=== PATIENT | female | born 1985 | race Caucasian/White ===

== ENCOUNTER 2018-12-12 07:51 | Inpatient (IN) ==
[2018-12-12] MEDS ORDERED: PENICILLIN G POTASSIUM 6 MU in DEXTROSE 5% 250 ML IV STA (09:03)
[2018-12-12] MEDS ORDERED: OXYTOCIN 30 UNITS/500 ML BAG IV PRN (09:03)
[2018-12-12 09:35] LABS: Hematocrit (blood only) 35.7 % (37-47); Hemoglobin 12.6 g/dL (12.0-16.0); Mean Corpuscular Hemoglobin 33.1 pg (25-34); Mean Corpuscular Volume 93.7 fL (80-100); Mean Platelet Volume 9.4 fL (7.4-10.4); Platelet Count 317 K/uL (130-400); RDW Coefficient of Variation 13.1 % (11.5-14.5); Red Blood Count 3.81 M/uL (4.2-5.4); White Blood Count 8.91 K/uL (4.8-10.8)
[2018-12-12] MEDS ORDERED: CEFAZOLIN 2000MG 2,000 MG/15 ML SYR IV ONE (09:45)
[2018-12-12 09:47] LABS: Mean Corpuscular Hgb Conc 35.3 g/dL (32-36)
[2018-12-12] MEDS: OXYTOCIN 30 UNITS/500 ML BAG IV PRN (10:31)
--- NOTE | 2018-12-12 10:54 | History & Physical Report ---
Date of Service December 12, 2018 Assessment & Plan (1) Post term over 40 weeks: IUP at 40+ weeks for OL will begin pitocin induction will use cefazolin because she is GBS (+) and allergic to PCNs patient will want epidural analgesia when appropriate anticipate vaginal History of Present Illness Primary Care Provider: Raine Plata MD Patient is a33 yo white female EDC12/07/[birth year] who presents for IOL because of post term . was complicated by GBS (+). Placenta was also low lying initially but resolved by 32 weeks. Allergies Allergy/AdvReac Type Severity Reaction Status Date / Time Penicillins Allergy Hives Verified 12/12/18 08:30 Home Medications Home Medications Medication Instructions Recorded Confirmed Type 1 tab PO DAILY 09/19/18 12/11/18 History vitamin,calcium,paypklfn-wiux-kcsog acid tablet Patient History Social History Preferred Language: Malay Communication Ability: Effective [employer] Estate [employer] Required: No Beliefs That Will Affect Care: None marital status: Current Living Situation: Spouse Other Information That Helps Us Care for You: No Feels Safe at Home: Yes Safety Concerns: Feels Safe At This Time Smoking Status: Never smoker Second Hand Exposure: No ; Hx Alcohol Use: No Hx Substance Use: No Review of Systems All systems reviewed & are unremarkable except as noted in HPI & below Physical Exam Constitutional: WD/WN, vitals as above Respiratory: normal respiratory effort, lungs clear to auscultation Cardiovascular: RRR, no murmur, no edema Gastrointestinal (Abdomen): normal bowel sounds, soft, nontender, no hepatosplenomegaly Psychiatric: A+Ox3, euthymic affect Genitourinary: OB Exam Abdomen: + vertex and + estimated weight (8-9 pounds) Manual OB Exam: + cervical dilation 2 cm, + cervical effacement 50% and + station high OB Exam Monitor Tracing: + external FHT monitor used, + external uterine monitor used, + category I and + normal FHT variability vertex by sonogram Results & Data Vital Signs (Past 12 Hours) Vital Signs Temp Pulse Resp BP 12/12/18 10:31 80 138/92 12/12/18 07:57 110 H 131/97 12/12/18 07:55 98.2 F 18 Code Status & VTE Plan VTE Prophylaxis Plan VTE Prophylaxis will be ordered: No
[2018-12-12] MEDS: LACTATED RINGER'S 1,000 ML IV PRN ×2 (17:38→19:59)
[2018-12-12] MEDS ORDERED: ePHEDrine sulfate 50 MG/ML AMP ONE (19:15)
[2018-12-12] MEDS ORDERED: fentaNYL citrate 100 MCG/2 ML VIAL ONE (19:15)
[2018-12-12] MEDS ORDERED: BUPIVACAINE 0.25% 30 ML VIAL ONE (19:16)
[2018-12-12] MEDS ORDERED: fentaNYL 2MCG/ML ROPIV 1.25MG/ML 100 ML BAG EPI ONE (19:16)
[2018-12-12] MEDS ORDERED: NALOXONE HCL 0.4 MG/1 ML VIAL/CARP IV PRN (19:51)
[2018-12-12] MEDS ORDERED: NALBUPHINE HCL INJ 10 MG/ML AMP IV PRN (19:51)
[2018-12-12] MEDS ORDERED: NALOXONE HCL 1 MG in SODIUM CHLORIDE 0.9% 1000ML 1,000 ML IV PRN (19:51)
[2018-12-12] MEDS ORDERED: DiphenhydrAMINE HCL 50 MG/ML VIAL IV PRN (19:51)
[2018-12-12] MEDS ORDERED: ONDANSETRON INJ 2 MG/ML 2 ML VIAL IV PRN (19:51)
[2018-12-12] MEDS ORDERED: ePHEDrine sulfate 50 MG/ML AMP IV PRN (19:51)
--- NOTE | 2018-12-12 19:52 | Anesthesiology Consultation ---
Date of Service December 12, 2018 Assessment & Plan (1) Encounter for pre-operative examination: 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: Patient NOT seen in Pre Admission Testing and Acceptable Risk for Labor Epidural Consults Requested none History Height/Weight Height: 5 ft 4 in Weight: 107.048 kg Allergies Allergy/AdvReac Type Severity Reaction Status Date / Time Penicillins Allergy Hives Verified 12/12/18 08:30 Medications Home Medications Medication Instructions Recorded Confirmed Last Taken 1 tab PO DAILY 09/19/18 12/12/18 12/11/18 21:00 vitamin,calcium,vxkysqqq-zuzs-nqdrv acid tablet Active Medications Generic Name Dose Route Start Last Admin Trade Name Freq PRN Reason Stop Dose Admin Lactated Ringer's 1,000 mls @ 125 mls/hr 12/12/18 09:03 12/12/18 19:10 Lr IV 12/14/18 09:02 999 mls/hr .Q8H PRN Infusion L&D Protocol Protocol Oxytocin 30 units in 500 mls @ 15 mls/hr 12/12/18 09:09 12/12/18 17:13 Pitocin IV 12/14/18 09:08 0.9 units/hr .Q24H PRN 15 mls/hr Labor Induction/Augmentation Titration Protocol 0.9 UNITS/HR Past Medical History Medical History History of miscarriage Need for rhogam due to Rh negative mother (Acute) HPV in female History of varicella Exercise / Class Metabolic Activity II 4-5 Yardwork/Stairs/Walk up hill Past Family History Family History Grandmother (Maternal) Breast cancer Heart disease Grandfather (Maternal) Heart disease Grandfather (Paternal) Heart disease Mother Hypertension Father Hypertension Dyslipidemia Past Surgical History Surgical History S/P wisdom tooth extraction Past Anesthesia History No Hx of Anesthesia Complications and No Family Hx of Anesthesia Complications History of PONV No Hx of PONV and No Hx of Motion Sickness Social History Smoking Status: Never smoker Do You Dip or Chew Tobacco: No Hx Alcohol Use: No Hx Substance Use: No substance use type: does not use Physical Exam Vital Signs Last Vital Signs Temp 36.8 C 10/22/19 19:30 Pulse 89 12/12/18 19:50 Resp 18 12/12/18 19:30 BP 142/98 H 12/12/18 19:49 Pulse Ox 98 12/12/18 19:50 Testing Laboratory Results 12/12/18 09:16
[2018-12-12] MEDS: CEFAZOLIN 1000MG 1,000 MG/7.5 ML SYR IV PRN (20:16)
[2018-12-13] MEDS ORDERED: CALCIUM CARBONATE 500 MG CHEWABLE TAB PO PRN (01:39)
[2018-12-13] MEDS: CEFAZOLIN 1000MG 1,000 MG/7.5 ML SYR IV PRN ×2 (03:50→12:19)
[2018-12-13] MEDS: LACTATED RINGER'S 1,000 ML IV PRN ×2 (03:50→11:27)
[2018-12-13] MEDS: fentaNYL 2MCG/ML ROPIV 1.25MG/ML 100 ML BAG EPI PRN ×2 (07:23→15:05)
[2018-12-13 08:34] LABS: Basophils # (auto) 0.03 K/uL (0-0.2); Basophils % (auto) 0.4 %; Eosinophils # (auto) 0.08 K/uL (0-0.5); Hematocrit (blood only) 34.6 % (37-47); Hemoglobin 12.2 g/dL (12.0-16.0); Immature Granulocytes # (auto) 0.03 K/uL (0.00-0.02); Immature Granulocytes % (auto) 0.4 %; Mean Corpuscular Hemoglobin 32.8 pg (25-34); Mean Platelet Volume 9.3 fL (7.4-10.4); Monocytes # (auto) 0.58 K/uL (0.11-0.59); Monocytes % (auto) 6.9 %; Neutrophils % (auto) 72.3 %; Platelet Count 297 K/uL (130-400); RDW Coefficient of Variation 13.2 % (11.5-14.5); RDW Standard Deviation 44.9 fL (36.4-46.3); Red Blood Count 3.72 M/uL (4.2-5.4); White Blood Count 8.42 K/uL (4.8-10.8)
[2018-12-13 08:45] LABS: INR 0.9 (0.9-1.1); Partial Thromboplastin Ratio 0.9; Partial Thromboplastin Time 25.7 Seconds (21.0-31.0); Prothrombin Time 9.5 Seconds (9.0-12.0)
[2018-12-13 08:50] LABS: Creatinine Clr Calc Pharmacy 145.3 ml/min; Est GFR (African American) 135.8; Est GFR (Non-African American) 117.1
--- NOTE | 2018-12-13 08:57 | Labor Progress Brief Note ---
Date of Service December 13, 2018 Subjective Reason For Note: Routine Evaluation pt comfortable with epidural. postdates induction. just srom this am for clear fluid at 745am. signout from dr. lara. pt made aware i am taking over care. Assessment & Plan (1) Post term over 40 weeks: 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 Streptococcus: on kefzol. c/w pit. will reeval cx in about 2hr from srom. may need to consider iupc at that time. fhts categ 1. comfortable with epidural. Physical Exam Constitutional: WD/WN, vitals as above Genitourinary: OB Exam Monitor Tracing: + external FHT monitor used (130 mod variability, reactive), + external uterine monitor used (q2-3), + category I and + normal FHT variability Results & Data Vital Signs (Past 12 Hours) Vital Signs Temp Pulse Resp BP Pulse Ox 12/13/18 08:50 83 98 12/13/18 08:45 91 H 98 12/13/18 08:40 85 133/85 98 12/13/18 08:35 77 97 12/13/18 08:31 20 12/13/18 08:30 79 97 12/13/18 08:25 85 136/86 98 12/13/18 08:20 77 98 12/13/18 08:15 81 97 12/13/18 08:11 76 122/80 12/13/18 08:10 78 98 12/13/18 08:05 87 98 12/13/18 08:01 20 12/13/18 08:00 98 H 98 12/13/18 07:57 90 136/99 12/13/18 07:55 81 98 12/13/18 07:50 80 98 12/13/18 07:45 98 H 97 12/13/18 07:42 98.1 F 89 20 135/102 H 12/13/18 07:40 106 H 98 12/13/18 07:35 90 97 12/13/18 07:30 103 H 97 12/13/18 07:28 99 H 153/98 H 12/13/18 07:25 99 H 150/102 H 98 12/13/18 07:20 104 H 97 12/13/18 07:15 118 H 97 12/13/18 07:11 103 H 147/103 H 12/13/18 07:10 101 H 158/106 H 97 12/13/18 07:05 91 H 97 12/13/18 07:01 20 12/13/18 07:00 101 H 97 12/13/18 06:55 88 157/98 H 96 12/13/18 06:50 95 H 97 12/13/18 06:45 98 H 97 12/13/18 06:41 98 H 174/92 H 12/13/18 06:40 104 H 98 12/13/18 06:35 102 H 98 12/13/18 06:33 88 147/99 H 12/13/18 06:30 85 98 12/13/18 06:27 18 12/13/18 06:25 82 152/101 H 98 12/13/18 06:20 80 97 12/13/18 06:15 70 97 12/13/18 06:10 67 108/67 97 12/13/18 06:05 68 96 12/13/18 06:00 67 96 12/13/18 05:56 70 108/62 12/13/18 05:55 69 96 12/13/18 05:50 67 96 12/13/18 05:45 70 97 12/13/18 05:41 69 115/62 12/13/18 05:40 72 96 12/13/18 05:35 68 96 12/13/18 05:30 69 96 12/13/18 05:25 75 116/65 96 12/13/18 05:23 18 12/13/18 05:20 69 96 12/13/18 05:15 67 96 12/13/18 05:10 75 118/64 98 12/13/18 05:07 18 12/13/18 05:05 71 97 12/13/18 05:00 68 97 12/13/18 04:55 75 123/68 97 12/13/18 04:50 75 98 12/13/18 04:45 70 97 12/13/18 04:40 76 128/80 99 12/13/18 04:35 87 98 12/13/18 04:30 79 98 12/13/18 04:25 73 122/76 97 12/13/18 04:20 82 98 12/13/18 04:15 81 98 12/13/18 04:12 75 128/82 12/13/18 04:10 74 97 12/13/18 04:05 75 97 12/13/18 04:00 90 98 12/13/18 03:59 98.1 F 18 12/13/18 03:55 74 123/88 97 12/13/18 03:50 86 97 12/13/18 03:45 83 97 12/13/18 03:40 83 121/85 97 12/13/18 03:35 86 97 12/13/18 03:30 95 H 96 12/13/18 03:25 87 126/84 96 12/13/18 03:20 97.9 F 80 18 96 12/13/18 03:15 97 H 97 12/13/18 03:10 86 125/88 97 12/13/18 03:05 82 96 12/13/18 03:00 96 H 96 12/13/18 02:55 100 H 122/91 97 12/13/18 02:50 77 97 12/13/18 02:45 91 H 96 12/13/18 02:40 102 H 128/91 96 12/13/18 02:35 83 96 12/13/18 02:30 71 18 94 12/13/18 02:25 91 H 134/92 98 12/13/18 02:20 77 95 12/13/18 02:15 78 96 12/13/18 02:10 82 130/81 96 12/13/18 02:05 86 96 12/13/18 02:00 89 96 12/13/18 01:55 79 134/87 96 12/13/18 01:50 92 H 98 12/13/18 01:45 81 98 12/13/18 01:41 79 148/89 H 12/13/18 01:40 78 97 12/13/18 01:35 89 98 12/13/18 01:30 84 97 12/13/18 01:26 99 H 128/96 12/13/18 01:25 96 H 98 12/13/18 01:20 76 97 12/13/18 01:15 87 98 12/13/18 01:10 81 131/89 97 12/13/18 01:05 91 H 98 12/13/18 01:00 98.2 F 80 18 97 12/13/18 00:55 84 135/90 97 12/13/18 00:50 78 97 12/13/18 00:45 80 98 12/13/18 00:41 81 134/89 12/13/18 00:40 79 97 12/13/18 00:35 80 97 12/13/18 00:30 88 97 12/13/18 00:26 81 140/101 H 12/13/18 00:25 79 96 12/13/18 00:20 99 H 96 12/13/18 00:15 85 97 12/13/18 00:10 84 124/88 96 12/13/18 00:05 80 98 12/13/18 00:01 81 94 12/13/18 00:00 84 97 12/12/18 23:56 90 129/86 12/12/18 23:55 84 96 12/12/18 23:50 87 96 12/12/18 23:45 78 96 12/12/18 23:40 97 H 130/87 97 12/12/18 23:35 73 97 12/12/18 23:30 90 97 12/12/18 23:26 73 133/87 12/12/18 23:25 74 97 12/12/18 23:20 86 96 12/12/18 23:15 80 97 12/12/18 23:11 76 143/96 H 12/12/18 23:10 85 97 12/12/18 23:05 86 98 12/12/18 23:00 97.9 F 76 18 97 12/12/18 22:57 70 153/92 H 12/12/18 22:55 74 97 12/12/18 22:50 75 98 12/12/18 22:45 76 98 12/12/18 22:41 75 131/84 12/12/18 22:40 78 98 12/12/18 22:35 80 98 12/12/18 22:30 73 18 98 12/12/18 22:26 78 138/88 12/12/18 22:25 73 97 12/12/18 22:20 73 97 12/12/18 22:15 75 98 12/12/18 22:11 75 138/83 12/12/18 22:10 78 99 12/12/18 22:05 75 96 12/12/18 22:00 71 18 98 12/12/18 21:56 73 139/83 12/12/18 21:55 79 97 10/22/19 21:50 77 98 12/12/18 21:45 77 97 12/12/18 21:42 76 137/84 12/12/18 21:40 78 98 12/12/18 21:35 76 98 12/12/18 21:30 89 20 98 12/12/18 21:25 79 128/83 97 12/12/18 21:20 78 97 12/12/18 21:15 79 98 12/12/18 21:10 77 127/85 97 12/12/18 21:05 81 97 12/12/18 21:00 78 20 97 12/12/18 20:56 75 131/81 12/12/18 20:55 80 97
[2018-12-13 09:15] LABS: Mean Corpuscular Hgb Conc 35.3 g/dL (32-36)
--- NOTE | 2018-12-13 10:01 | Labor Progress Brief Note ---
Date of Service December 13, 2018 Subjective Reason For Note: Routine Evaluation feels occas lower abd pressure. Assessment & Plan (1) Post term over 40 weeks: 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 Streptococcus: cont with abx, c/w pit, use mvu's to guide adequacy of labor. fhts categ 1. Physical Exam Constitutional: WD/WN, vitals as above Genitourinary: Manual OB Exam: + cervical dilation 4 cm, + cervical effacement 50%, + station -2 and + amniotic fluid clear OB Exam Monitor Tracing: + external FHT monitor used (135 mod variability, reactive. ), + external uterine monitor used (q2 pit at 27), + category I and + normal FHT variability IUPC placed. Results & Data Vital Signs (Past 12 Hours) Vital Signs Temp Pulse Resp BP Pulse Ox 12/13/18 09:57 87 144/102 H 12/13/18 09:55 85 97 12/13/18 09:50 95 H 97 12/13/18 09:45 84 97 12/13/18 09:41 88 142/93 H 12/13/18 09:40 76 96 12/13/18 09:35 83 97 12/13/18 09:31 97.7 F 20 12/13/18 09:30 79 159/91 H 98 12/13/18 09:25 81 96 12/13/18 09:20 77 96 12/13/18 09:15 77 96 12/13/18 09:11 83 126/84 12/13/18 09:10 77 97 12/13/18 09:05 79 97 12/13/18 09:00 77 96 12/13/18 08:56 76 20 129/81 12/13/18 08:55 81 98 12/13/18 08:50 83 98 12/13/18 08:45 91 H 98 12/13/18 08:40 85 133/85 98 12/13/18 08:35 77 97 12/13/18 08:31 20 12/13/18 08:30 79 97 12/13/18 08:25 85 136/86 98 12/13/18 08:20 77 98 12/13/18 08:15 81 97 12/13/18 08:11 76 122/80 12/13/18 08:10 78 98 12/13/18 08:05 87 98 12/13/18 08:01 20 12/13/18 08:00 98 H 98 12/13/18 07:57 90 136/99 12/13/18 07:55 81 98 12/13/18 07:50 80 98 12/13/18 07:45 98 H 97 12/13/18 07:42 98.1 F 89 20 135/102 H 12/13/18 07:40 106 H 98 12/13/18 07:35 90 97 12/13/18 07:30 103 H 97 12/13/18 07:28 99 H 153/98 H 12/13/18 07:25 99 H 150/102 H 98 12/13/18 07:20 104 H 97 12/13/18 07:15 118 H 97 12/13/18 07:11 103 H 147/103 H 12/13/18 07:10 101 H 158/106 H 97 12/13/18 07:05 91 H 97 12/13/18 07:01 20 12/13/18 07:00 101 H 97 12/13/18 06:55 88 157/98 H 96 12/13/18 06:50 95 H 97 12/13/18 06:45 98 H 97 12/13/18 06:41 98 H 174/92 H 12/13/18 06:40 104 H 98 12/13/18 06:35 102 H 98 12/13/18 06:33 88 147/99 H 12/13/18 06:30 85 98 12/13/18 06:27 18 12/13/18 06:25 82 152/101 H 98 12/13/18 06:20 80 97 12/13/18 06:15 70 97 12/13/18 06:10 67 108/67 97 12/13/18 06:05 68 96 12/13/18 06:00 67 96 12/13/18 05:56 70 108/62 12/13/18 05:55 69 96 12/13/18 05:50 67 96 12/13/18 05:45 70 97 12/13/18 05:41 69 115/62 12/13/18 05:40 72 96 12/13/18 05:35 68 96 12/13/18 05:30 69 96 12/13/18 05:25 75 116/65 96 12/13/18 05:23 18 12/13/18 05:20 69 96 12/13/18 05:15 67 96 12/13/18 05:10 75 118/64 98 12/13/18 05:07 18 12/13/18 05:05 71 97 12/13/18 05:00 68 97 12/13/18 04:55 75 123/68 97 12/13/18 04:50 75 98 12/13/18 04:45 70 97 12/13/18 04:40 76 128/80 99 12/13/18 04:35 87 98 12/13/18 04:30 79 98 12/13/18 04:25 73 122/76 97 12/13/18 04:20 82 98 12/13/18 04:15 81 98 12/13/18 04:12 75 128/82 12/13/18 04:10 74 97 12/13/18 04:05 75 97 12/13/18 04:00 90 98 12/13/18 03:59 98.1 F 18 12/13/18 03:55 74 123/88 97 12/13/18 03:50 86 97 12/13/18 03:45 83 97 12/13/18 03:40 83 121/85 97 12/13/18 03:35 86 97 12/13/18 03:30 95 H 96 12/13/18 03:25 87 126/84 96 12/13/18 03:20 97.9 F 80 18 96 12/13/18 03:15 97 H 97 12/13/18 03:10 86 125/88 97 12/13/18 03:05 82 96 12/13/18 03:00 96 H 96 12/13/18 02:55 100 H 122/91 97 12/13/18 02:50 77 97 12/13/18 02:45 91 H 96 12/13/18 02:40 102 H 128/91 96 12/13/18 02:35 83 96 12/13/18 02:30 71 18 94 12/13/18 02:25 91 H 134/92 98 12/13/18 02:20 77 95 12/13/18 02:15 78 96 12/13/18 02:10 82 130/81 96 12/13/18 02:05 86 96 12/13/18 02:00 89 96 12/13/18 01:55 79 134/87 96 12/13/18 01:50 92 H 98 12/13/18 01:45 81 98 12/13/18 01:41 79 148/89 H 12/13/18 01:40 78 97 12/13/18 01:35 89 98 12/13/18 01:30 84 97 12/13/18 01:26 99 H 128/96 12/13/18 01:25 96 H 98 12/13/18 01:20 76 97 12/13/18 01:15 87 98 12/13/18 01:10 81 131/89 97 12/13/18 01:05 91 H 98 12/13/18 01:00 98.2 F 80 18 97 12/13/18 00:55 84 135/90 97 12/13/18 00:50 78 97 12/13/18 00:45 80 98 12/13/18 00:41 81 134/89 12/13/18 00:40 79 97 12/13/18 00:35 80 97 12/13/18 00:30 88 97 12/13/18 00:26 81 140/101 H 12/13/18 00:25 79 96 12/13/18 00:20 99 H 96 12/13/18 00:15 85 97 12/13/18 00:10 84 124/88 96 12/13/18 00:05 80 98 12/13/18 00:01 81 94 12/13/18 00:00 84 97 12/12/18 23:56 90 129/86 12/12/18 23:55 84 96 12/12/18 23:50 87 96 12/12/18 23:45 78 96 12/12/18 23:40 97 H 130/87 97 12/12/18 23:35 73 97 12/12/18 23:30 90 97 12/12/18 23:26 73 133/87 12/12/18 23:25 74 97 12/12/18 23:20 86 96 12/12/18 23:15 80 97 12/12/18 23:11 76 143/96 H 12/12/18 23:10 85 97 12/12/18 23:05 86 98 12/12/18 23:00 97.9 F 76 18 97 12/12/18 22:57 70 153/92 H 12/12/18 22:55 74 97 12/12/18 22:50 75 98 12/12/18 22:45 76 98 12/12/18 22:41 75 131/84 12/12/18 22:40 78 98 12/12/18 22:35 80 98 12/12/18 22:30 73 18 98 12/12/18 22:26 78 138/88 12/12/18 22:25 73 97 12/12/18 22:20 73 97 12/12/18 22:15 75 98 12/12/18 22:11 75 138/83 12/12/18 22:10 78 99 12/12/18 22:05 75 96 12/12/18 22:00 71 18 98
[2018-12-13] MEDS: OXYTOCIN 30 UNITS/500 ML BAG IV PRN (10:03)
[2018-12-13] MEDS ORDERED: Nursing to Pharmacy Communication ONE (13:25)
[2018-12-13] MEDS ORDERED: LABETALOL HCL IV 5 MG/ML 20ML IV STA (13:38)
--- NOTE | 2018-12-13 13:38 | Labor Progress Brief Note ---
Date of Service December 13, 2018 Subjective Reason For Note: Routine Evaluation and Requested By Patient having more right sided pain, despite epidural. has been d/w nursing potentially requesting c/s. i have been aware of her thoughts and have been available to answer questions Assessment & Plan (1) Post term over 40 weeks: (2) Gestational hypertension: labs this am were normal. urine output has been good. urine protein neg. (3) Carrier of group B Streptococcus: abx for gbs pit for induction, good cx change. fhts categ 1 discussion with pt per nursing notes. she does not want to increase pitocin to achieve adequate mvu's, she also does not want to 1/2 pit and restart. she wants to keep pitocin where it is. still that has changed her cx so far but unclear to me that if cx does not change that we can say that we achieved adequate labor. given bps, will add labetalol, pt aware. discussed need for delivery with that dx at her gest age but still does not change indication to urgent delivery ie. c/s. she is able to choose c/s delivery if she wants. currently no medical indication for that, and that can change. she asks about the future, ie. will she make it to complete, will she successfully push to delivery baby, will her baby come down in the pelvis, will she need c/s ultimately anyway. none of these questions are answerable as I cannot predict the future. Any of these scenarios could occur for her, just not able to tell now. she and spouse continue to discuss if she want to "go on" anymore. We will try to get her more comfortable with epidural. Physical Exam Constitutional: WD/WN, vitals as above Genitourinary: Manual OB Exam: + cervical dilation 6 cm, + cervical effacement 90% and + station -2 OB Exam Monitor Tracing: + external FHT monitor used (120 mod variability, ?early decels), + intra-uterine pressure catheter used (q2 pit at 30), + category I and + normal FHT variability Results & Data Vital Signs (Past 12 Hours) Vital Signs Temp Pulse Resp BP Pulse Ox 12/13/18 13:30 98.2 F 97 H 20 98 12/13/18 13:25 84 98 12/13/18 13:20 87 98 12/13/18 13:15 91 H 97 12/13/18 13:10 82 97 12/13/18 13:05 100 H 20 168/101 H 98 12/13/18 13:00 105 H 98 12/13/18 12:55 100 H 98 12/13/18 12:50 88 97 12/13/18 12:45 99 H 98 12/13/18 12:40 97 H 97 12/13/18 12:35 97 H 98 12/13/18 12:33 94 H 20 142/98 H 12/13/18 12:30 88 97 12/13/18 12:25 95 H 98 12/13/18 12:20 87 97 12/13/18 12:15 98 H 97 12/13/18 12:10 85 97 12/13/18 12:05 93 H 98 12/13/18 12:03 93 H 20 138/101 H 12/13/18 12:00 95 H 97 12/13/18 11:55 101 H 98 12/13/18 11:50 85 97 12/13/18 11:45 86 98 12/13/18 11:40 93 H 97 12/13/18 11:35 89 98 12/13/18 11:33 91 H 20 155/102 H 12/13/18 11:30 93 H 97 12/13/18 11:25 93 H 98 12/13/18 11:20 78 98 12/13/18 11:15 90 97 12/13/18 11:10 82 98 12/13/18 11:05 85 97 12/13/18 11:04 98.1 F 82 20 152/100 H 12/13/18 11:00 77 97 12/13/18 10:55 90 96 12/13/18 10:50 78 97 12/13/18 10:45 78 96 12/13/18 10:40 79 97 12/13/18 10:35 89 98 12/13/18 10:34 78 20 150/96 H 12/13/18 10:30 79 97 12/13/18 10:25 81 97 12/13/18 10:20 84 98 12/13/18 10:15 83 97 12/13/18 10:10 79 96 12/13/18 10:05 85 96 12/13/18 10:02 81 20 143/88 H 10/23/19 10:01 20 12/13/18 10:00 88 96 12/13/18 09:57 87 144/102 H 12/13/18 09:55 85 97 12/13/18 09:50 95 H 97 12/13/18 09:45 84 97 12/13/18 09:41 88 142/93 H 12/13/18 09:40 76 96 12/13/18 09:35 83 97 12/13/18 09:31 97.7 F 20 12/13/18 09:30 79 159/91 H 98 12/13/18 09:25 81 96 12/13/18 09:20 77 96 12/13/18 09:15 77 96 12/13/18 09:11 83 126/84 12/13/18 09:10 77 97 12/13/18 09:05 79 97 12/13/18 09:00 77 96 12/13/18 08:56 76 20 129/81 12/13/18 08:55 81 98 12/13/18 08:50 83 98 12/13/18 08:45 91 H 98 12/13/18 08:40 85 133/85 98 12/13/18 08:35 77 97 12/13/18 08:31 20 12/13/18 08:30 79 97 12/13/18 08:25 85 136/86 98 12/13/18 08:20 77 98 12/13/18 08:15 81 97 12/13/18 08:11 76 122/80 12/13/18 08:10 78 98 12/13/18 08:05 87 98 12/13/18 08:01 20 12/13/18 08:00 98 H 98 12/13/18 07:57 90 136/99 12/13/18 07:55 81 98 12/13/18 07:50 80 98 12/13/18 07:45 98 H 97 12/13/18 07:42 98.1 F 89 20 135/102 H 12/13/18 07:40 106 H 98 12/13/18 07:35 90 97 12/13/18 07:30 103 H 97 12/13/18 07:28 99 H 153/98 H 19 07:25 99 H 150/102 H 98 12/13/18 07:20 104 H 97 12/13/18 07:15 118 H 97 12/13/18 07:11 103 H 147/103 H 12/13/18 07:10 101 H 158/106 H 97 12/13/18 07:05 91 H 97 12/13/18 07:01 20 12/13/18 07:00 101 H 97 12/13/18 06:55 88 157/98 H 96 12/13/18 06:50 95 H 97 12/13/18 06:45 98 H 97 12/13/18 06:41 98 H 174/92 H 12/13/18 06:40 104 H 98 12/13/18 06:35 102 H 98 12/13/18 06:33 88 147/99 H 12/13/18 06:30 85 98 12/13/18 06:27 18 12/13/18 06:25 82 152/101 H 98 12/13/18 06:20 80 97 12/13/18 06:15 70 97 12/13/18 06:10 67 108/67 97 12/13/18 06:05 68 96 12/13/18 06:00 67 96 12/13/18 05:56 70 108/62 12/13/18 05:55 69 96 12/13/18 05:50 67 96 12/13/18 05:45 70 97 12/13/18 05:41 69 115/62 12/13/18 05:40 72 96 12/13/18 05:35 68 96 12/13/18 05:30 69 96 12/13/18 05:25 75 116/65 96 12/13/18 05:23 18 12/13/18 05:20 69 96 12/13/18 05:15 67 96 12/13/18 05:10 75 118/64 98 12/13/18 05:07 18 12/13/18 05:05 71 97 12/13/18 05:00 68 97 12/13/18 04:55 75 123/68 97 12/13/18 04:50 75 98 12/13/18 04:45 70 97 12/13/18 04:40 76 128/80 99 12/13/18 04:35 87 98 12/13/18 04:30 79 98 12/13/18 04:25 73 122/76 97 12/13/18 04:20 82 98 12/13/18 04:15 81 98 12/13/18 04:12 75 128/82 12/13/18 04:10 74 97 12/13/18 04:05 75 97 12/13/18 04:00 90 98 12/13/18 03:59 98.1 F 18 12/13/18 03:55 74 123/88 97 12/13/18 03:50 86 97 12/13/18 03:45 83 97 12/13/18 03:40 83 121/85 97 12/13/18 03:35 86 97 12/13/18 03:30 95 H 96 12/13/18 03:25 87 126/84 96 12/13/18 03:20 97.9 F 80 18 96 12/13/18 03:15 97 H 97 12/13/18 03:10 86 125/88 97 12/13/18 03:05 82 96 12/13/18 03:00 96 H 96 12/13/18 02:55 100 H 122/91 97 12/13/18 02:50 77 97 12/13/18 02:45 91 H 96 12/13/18 02:40 102 H 128/91 96 12/13/18 02:35 83 96 12/13/18 02:30 71 18 94 12/13/18 02:25 91 H 134/92 98 12/13/18 02:20 77 95 12/13/18 02:15 78 96 12/13/18 02:10 82 130/81 96 12/13/18 02:05 86 96 12/13/18 02:00 89 96 12/13/18 01:55 79 134/87 96 12/13/18 01:50 92 H 98 12/13/18 01:45 81 98 12/13/18 01:41 79 148/89 H 12/13/18 01:40 78 97 12/13/18 01:35 89 98
[2018-12-13] MEDS ORDERED: BUPIVACAINE 0.25% 30 ML VIAL ONE (13:51)
[2018-12-13] MEDS ORDERED: fentaNYL citrate 100 MCG/2 ML VIAL ONE (14:18)
--- NOTE | 2018-12-13 14:24 | Labor Progress Brief Note ---
Date of Service December 13, 2018 Subjective Reason For Note: Inadequate Pain Control and Other (requested by anesthesia) pt noting lower pelvic pain. ? if progressing quickly. anesth wondering if exam can be done which would guide his thoughts to get her comfortable. Assessment & Plan (1) Post term over 40 weeks: 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 Streptococcus: (3) Gestational hypertension: bps improving after labetalol, good cx change. fhts categ 1. anesthesia helping pt with pain control. Physical Exam Constitutional: WD/WN, vitals as above Genitourinary: Manual OB Exam: + cervical dilation 8 cm, + cervical effacement 100% and + station -1 OB Exam Monitor Tracing: + external FHT monitor used (120 mod variability), + intra-uterine pressure catheter used (q3 pit at 30 mvu's inadeq), + category I and + normal FHT variability Results & Data Vital Signs (Past 12 Hours) Vital Signs Temp Pulse Resp BP Pulse Ox 12/13/18 14:20 79 97 12/13/18 14:19 74 142/95 H 12/13/18 14:17 82 140/96 12/13/18 14:15 77 147/96 H 96 12/13/18 14:13 76 156/95 H 92 12/13/18 14:11 72 148/92 H 12/13/18 14:10 76 98 12/13/18 14:09 75 147/90 H 12/13/18 14:07 72 153/94 H 12/13/18 14:05 76 145/77 H 98 12/13/18 14:03 81 157/95 H 12/13/18 14:02 76 167/90 H 12/13/18 14:00 79 97 12/13/18 13:59 76 151/91 H 12/13/18 13:57 75 159/97 H 12/13/18 13:55 79 160/99 H 97 12/13/18 13:53 76 152/96 H 12/13/18 13:51 76 157/94 H 12/13/18 13:50 84 97 12/13/18 13:49 83 158/97 H 12/13/18 13:45 85 97 12/13/18 13:40 85 97 12/13/18 13:35 86 97 12/13/18 13:34 85 171/103 H 12/13/18 13:30 98.2 F 97 H 20 98 12/13/18 13:25 84 98 12/13/18 13:20 87 98 12/13/18 13:15 91 H 97 12/13/18 13:10 82 97 12/13/18 13:05 100 H 20 168/101 H 98 12/13/18 13:00 105 H 98 12/13/18 12:55 100 H 98 12/13/18 12:50 88 97 12/13/18 12:45 99 H 98 12/13/18 12:40 97 H 97 12/13/18 12:35 97 H 98 12/13/18 12:33 94 H 20 142/98 H 12/13/18 12:30 88 97 12/13/18 12:25 95 H 98 12/13/18 12:20 87 97 12/13/18 12:15 98 H 97 12/13/18 12:10 85 97 12/13/18 12:05 93 H 98 12/13/18 12:03 93 H 20 138/101 H 12/13/18 12:00 95 H 97 12/13/18 11:55 101 H 98 12/13/18 11:50 85 97 12/13/18 11:45 86 98 12/13/18 11:40 93 H 97 12/13/18 11:35 89 98 12/13/18 11:33 91 H 20 155/102 H 12/13/18 11:30 93 H 97 12/13/18 11:25 93 H 98 12/13/18 11:20 78 98 12/13/18 11:15 90 97 12/13/18 11:10 82 98 12/13/18 11:05 85 97 12/13/18 11:04 98.1 F 82 20 152/100 H 12/13/18 11:00 77 97 12/13/18 10:55 90 96 12/13/18 10:50 78 97 12/13/18 10:45 78 96 12/13/18 10:40 79 97 12/13/18 10:35 89 98 12/13/18 10:34 78 20 150/96 H 12/13/18 10:30 79 97 12/13/18 10:25 81 97 12/13/18 10:20 84 98 12/13/18 10:15 83 97 12/13/18 10:10 79 96 12/13/18 10:05 85 96 12/13/18 10:02 81 20 143/88 H 12/13/18 10:01 20 12/13/18 10:00 88 96 12/13/18 09:57 87 144/102 H 12/13/18 09:55 85 97 12/13/18 09:50 95 H 97 12/13/18 09:45 84 97 12/13/18 09:41 88 142/93 H 12/13/18 09:40 76 96 12/13/18 09:35 83 97 12/13/18 09:31 97.7 F 20 12/13/18 09:30 79 159/91 H 98 12/13/18 09:25 81 96 12/13/18 09:20 77 96 12/13/18 09:15 77 96 12/13/18 09:11 83 126/84 12/13/18 09:10 77 97 12/13/18 09:05 79 97 12/13/18 09:00 77 96 12/13/18 08:56 76 20 129/81 12/13/18 08:55 81 98 12/13/18 08:50 83 98 12/13/18 08:45 91 H 98 12/13/18 08:40 85 133/85 98 12/13/18 08:35 77 97 12/13/18 08:31 20 12/13/18 08:30 79 97 12/13/18 08:25 85 136/86 98 12/13/18 08:20 77 98 12/13/18 08:15 81 97 12/13/18 08:11 76 122/80 12/13/18 08:10 78 98 12/13/18 08:05 87 98 12/13/18 08:01 20 12/13/18 08:00 98 H 98 12/13/18 07:57 90 136/99 12/13/18 07:55 81 98 12/13/18 07:50 80 98 12/13/18 07:45 98 H 97 12/13/18 07:42 98.1 F 89 20 135/102 H 12/13/18 07:40 106 H 98 12/13/18 07:35 90 97 12/13/18 07:30 103 H 97 12/13/18 07:28 99 H 153/98 H 12/13/18 07:25 99 H 150/102 H 98 12/13/18 07:20 104 H 97 12/13/18 07:15 118 H 97 12/13/18 07:11 103 H 147/103 H 12/13/18 07:10 101 H 158/106 H 97 12/13/18 07:05 91 H 97 12/13/18 07:01 20 12/13/18 07:00 101 H 97 12/13/18 06:55 88 157/98 H 96 12/13/18 06:50 95 H 97 12/13/18 06:45 98 H 97 12/13/18 06:41 98 H 174/92 H 12/13/18 06:40 104 H 98 12/13/18 06:35 102 H 98 12/13/18 06:33 88 147/99 H 12/13/18 06:30 85 98 12/13/18 06:27 18 12/13/18 06:25 82 152/101 H 98 12/13/18 06:20 80 97 12/13/18 06:15 70 97 12/13/18 06:10 67 108/67 97 12/13/18 06:05 68 96 12/13/18 06:00 67 96 12/13/18 05:56 70 108/62 12/13/18 05:55 69 96 12/13/18 05:50 67 96 12/13/18 05:45 70 97 12/13/18 05:41 69 115/62 12/13/18 05:40 72 96 12/13/18 05:35 68 96 12/13/18 05:30 69 96 12/13/18 05:25 75 116/65 96 12/13/18 05:23 18 12/13/18 05:20 69 96 12/13/18 05:15 67 96 12/13/18 05:10 75 118/64 98 12/13/18 05:07 18 12/13/18 05:05 71 97 12/13/18 05:00 68 97 12/13/18 04:55 75 123/68 97 12/13/18 04:50 75 98 12/13/18 04:45 70 97 12/13/18 04:40 76 128/80 99 12/13/18 04:35 87 98 12/13/18 04:30 79 98 12/13/18 04:25 73 122/76 97 12/13/18 04:20 82 98 12/13/18 04:15 81 98 12/13/18 04:12 75 128/82 12/13/18 04:10 74 97 12/13/18 04:05 75 97 12/13/18 04:00 90 98 12/13/18 03:59 98.1 F 18 12/13/18 03:55 74 123/88 97 12/13/18 03:50 86 97 12/13/18 03:45 83 97 12/13/18 03:40 83 121/85 97 12/13/18 03:35 86 97 12/13/18 03:30 95 H 96 12/13/18 03:25 87 126/84 96 12/13/18 03:20 97.9 F 80 18 96 12/13/18 03:15 97 H 97 12/13/18 03:10 86 125/88 97 12/13/18 03:05 82 96 12/13/18 03:00 96 H 96 12/13/18 02:55 100 H 122/91 97 12/13/18 02:50 77 97 12/13/18 02:45 91 H 96 12/13/18 02:40 102 H 128/91 96 12/13/18 02:35 83 96 12/13/18 02:30 71 18 94 12/13/18 02:25 91 H 134/92 98
--- NOTE | 2018-12-13 14:49 | Anesthesiology Progress Note ---
Date of Service December 13, 2018 Subjective Pt stated having increasing labor pain. The patients epidural was bolused with 10mL of 0.125% bupivacaine and 50mcg of fentanyl. Pt states having improved labor pain. The pts cervix is currently 8cm. Physical Exam Vital Signs: Last Vital Signs Temp 98.2 F 12/13/18 13:30 Pulse 74 12/13/18 14:43 Resp 22 12/13/18 14:27 BP 143/91 H 12/13/18 14:43 Pulse Ox 98 12/13/18 14:40 Results & Data Medications Administered Calcium Carbonate (Tums) 1,000 mg PO Q4 PRN PRN Reason: Indigestion Stop: 01/12/19 01:38 Last Admin: 12/13/18 01:52 Dose: 1,000 mg Documented by: [id number] Cefazolin Sodium (Ancef 1000mg) 1,000 mg in 7.5 mls @ 2.5 mls/min IV Q8H PRN PRN Reason: until delivery Stop: 12/22/18 09:07 Last Admin: 12/13/18 12:19 Dose: 2.5 mls/min Documented by: [id number] Admin: 12/13/18 03:50 Dose: 2.5 mls/min Documented by: [id number] Admin: 12/12/18 20:16 Dose: 2.5 mls/min Documented by: [id number] Lactated Ringer's (Lr) 1,000 mls @ 125 mls/hr IV .Q8H PRN; Protocol PRN Reason: L&D Protocol Stop: 12/14/18 09:02 Last Admin: 12/13/18 11:27 Dose: 125 mls/hr Documented by: [id number] Infusion: 12/13/18 11:27 Dose: 125 mls/hr Documented by: [id number] Infusion: 12/13/18 06:34 Dose: 125 mls/hr Documented by: [id number] Admin: 12/13/18 03:50 Dose: 125 mls/hr Documented by: [id number] Infusion: 12/13/18 03:50 Dose: 125 mls/hr Documented by: [id number] Infusion: 12/12/18 23:12 Dose: 125 mls/hr Documented by: [id number] Infusion: 12/12/18 23:01 Dose: 125 mls/hr Documented by: [id number] Infusion: 12/12/18 19:59 Dose: 125 mls/hr Documented by: [id number] Admin: 12/12/18 19:59 Dose: 999 mls/hr Documented by: [id number] Infusion: 12/12/18 19:59 Dose: 999 mls/hr Documented by: [id number] Infusion: 12/12/18 19:10 Dose: 999 mls/hr Documented by: [id number] Admin: 12/12/18 17:38 Dose: 125 mls/hr Documented by: [id number] Oxytocin (Pitocin) 30 units in 500 mls @ 30 mls/hr IV .[id number] PRN; Protocol PRN Reason: Labor Induction/Augmentation Stop: 12/14/18 09:08 Last Titration: 12/13/18 11:20 Dose: 1.8 units/hr, 30 mls/hr Documented by: [id number] Titration: 12/13/18 10:45 Dose: 1.74 units/hr, 29 mls/hr Documented by: [id number] Admin: 12/13/18 10:03 Dose: 1.62 units/hr, 27 mls/hr Documented by: [id number] Cosigned by: [id number] Titration: 12/13/18 10:03 Dose: 1.62 units/hr, 27 mls/hr Documented by: [id number] Cosigned by: [id number] Titration: 12/13/18 09:30 Dose: 1.62 units/hr, 27 mls/hr Documented by: [id number] Titration: 12/13/18 09:00 Dose: 1.5 units/hr, 25 mls/hr Documented by: [id number] Titration: 12/13/18 08:29 Dose: 1.38 units/hr, 23 mls/hr Documented by: [id number] Titration: 12/13/18 06:30 Dose: 1.26 units/hr, 21 mls/hr Documented by: [id number] Titration: 12/13/18 06:00 Dose: 1.14 units/hr, 19 mls/hr Documented by: [id number] Titration: 12/13/18 05:30 Dose: 1.02 units/hr, 17 mls/hr Documented by: [id number] Titration: 12/13/18 05:00 Dose: 0.9 units/hr, 15 mls/hr Documented by: [id number] Titration: 12/13/18 04:30 Dose: 0.78 units/hr, 13 mls/hr Documented by: [id number] Titration: 12/13/18 03:45 Dose: 0.66 units/hr, 11 mls/hr Documented by: [id number] Titration: 12/13/18 03:15 Dose: 0.54 units/hr, 9 mls/hr Documented by: [id number] Titration: 12/13/18 02:30 Dose: 0.42 units/hr, 7 mls/hr Documented by: [id number] Titration: 12/13/18 02:00 Dose: 0.3 units/hr, 5 mls/hr Documented by: [id number] Titration: 12/13/18 01:30 Dose: 0.18 units/hr, 3 mls/hr Documented by: [id number] Titration: 12/13/18 01:00 Dose: 0.06 units/hr, 1 mls/hr Documented by: [id number] Titration: 12/13/18 00:00 Dose: 0 units/hr, 0 mls/hr Documented by: [id number] Titration: 12/12/18 23:12 Dose: 1.26 units/hr, 21 mls/hr Documented by: [id number] Titration: 12/12/18 23:01 Dose: 1.26 units/hr, 21 mls/hr Documented by: [id number] Titration: 12/12/18 22:25 Dose: 1.26 units/hr, 21 mls/hr Documented by: [id number] Titration: 12/12/18 21:32 Dose: 1.14 units/hr, 19 mls/hr Documented by: [id number] Titration: 12/12/18 20:38 Dose: 1.02 units/hr, 17 mls/hr Documented by: [id number] Titration: 12/12/18 17:13 Dose: 0.9 units/hr, 15 mls/hr Documented by: [id number] Titration: 12/12/18 16:00 Dose: 0.78 units/hr, 13 mls/hr Documented by: [id number] Titration: 12/12/18 13:15 Dose: 0.66 units/hr, 11 mls/hr Documented by: [id number] Titration: 12/12/18 12:45 Dose: 0.54 units/hr, 9 mls/hr Documented by: [id number] Titration: 12/12/18 12:15 Dose: 0.42 units/hr, 7 mls/hr Documented by: [id number] Titration: 12/12/18 11:31 Dose: 0.3 units/hr, 5 mls/hr Documented by: [id number] Titration: 12/12/18 11:01 Dose: 0.18 units/hr, 3 mls/hr Documented by: [id number] Admin: 12/12/18 10:31 Dose: 0.06 units/hr, 1 mls/hr Documented by: [id number] Cosigned by: [id number] Ropivacaine (Epidural (L&D)) 100 ml EPI PRN PRN; Protocol PRN Reason: Pain R/T Labor Stop: 12/13/18 19:50 Last Admin: 12/13/18 07:23 Dose: 100 ml Documented by: [id number] Cosigned by: [id number]
--- NOTE | 2018-12-13 15:30 | Labor Progress Brief Note ---
Date of Service December 13, 2018 Subjective Reason For Note: Routine Evaluation pt feeling more comfortable. Assessment & Plan (1) Post term over 40 weeks: (2) Gestational hypertension: (3) Carrier of group B Streptococcus: c/w abx and pit. begin 2nd stage soon. fhts categ 1 Physical Exam Constitutional: WD/WN, vitals as above Genitourinary: Manual OB Exam: + cervical dilation 10 cm, + cervical effacement 100% and + station + 1 OB Exam Monitor Tracing: + external FHT monitor used (115 , mod variability, accels, +early decel), + intra-uterine pressure catheter used (q2-3 pit at 30), + category I and + normal FHT variability Results & Data Vital Signs (Past 12 Hours) Vital Signs Temp Pulse Resp BP Pulse Ox 12/13/18 15:25 78 98 12/13/18 15:20 75 98 12/13/18 15:15 76 98 12/13/18 15:11 74 157/94 H 12/13/18 15:10 73 98 12/13/18 15:05 70 98 12/13/18 15:00 77 97 12/13/18 14:58 76 93 12/13/18 14:56 69 146/91 H 12/13/18 14:55 75 96 12/13/18 14:50 74 142/91 H 97 12/13/18 14:45 74 97 12/13/18 14:43 97.7 F 74 20 143/91 H 12/13/18 14:41 74 156/94 H 12/13/18 14:40 77 98 12/13/18 14:39 74 139/87 12/13/18 14:37 153/88 H 12/13/18 14:35 75 145/87 H 98 12/13/18 14:33 75 147/88 H 12/13/18 14:31 73 149/99 H 12/13/18 14:30 76 96 12/13/18 14:29 73 141/94 H 12/13/18 14:27 76 22 140/91 12/13/18 14:25 86 149/94 H 98 12/13/18 14:23 75 148/94 H 12/13/18 14:21 76 146/97 H 12/13/18 14:20 79 97 12/13/18 14:19 74 142/95 H 12/13/18 14:17 82 140/96 12/13/18 14:15 77 147/96 H 96 12/13/18 14:13 76 156/95 H 92 12/13/18 14:11 72 148/92 H 12/13/18 14:10 76 98 12/13/18 14:09 75 147/90 H 12/13/18 14:07 72 153/94 H 12/13/18 14:05 76 145/77 H 98 12/13/18 14:03 81 157/95 H 12/13/18 14:02 76 167/90 H 12/13/18 14:00 79 97 12/13/18 13:59 76 151/91 H 12/13/18 13:57 75 159/97 H 12/13/18 13:55 79 160/99 H 97 12/13/18 13:53 76 152/96 H 12/13/18 13:51 76 157/94 H 12/13/18 13:50 84 97 12/13/18 13:49 83 158/97 H 12/13/18 13:45 85 97 12/13/18 13:40 85 97 12/13/18 13:35 86 97 12/13/18 13:34 85 171/103 H 12/13/18 13:30 98.2 F 97 H 20 98 12/13/18 13:25 84 98 12/13/18 13:20 87 98 12/13/18 13:15 91 H 97 12/13/18 13:10 82 97 12/13/18 13:05 100 H 20 168/101 H 98 12/13/18 13:00 105 H 98 12/13/18 12:55 100 H 98 12/13/18 12:50 88 97 12/13/18 12:45 99 H 98 12/13/18 12:40 97 H 97 12/13/18 12:35 97 H 98 12/13/18 12:33 94 H 20 142/98 H 12/13/18 12:30 88 97 12/13/18 12:25 95 H 98 12/13/18 12:20 87 97 12/13/18 12:15 98 H 97 12/13/18 12:10 85 97 12/13/18 12:05 93 H 98 12/13/18 12:03 93 H 20 138/101 H 10/23/19 12:00 95 H 97 12/13/18 11:55 101 H 98 12/13/18 11:50 85 97 12/13/18 11:45 86 98 12/13/18 11:40 93 H 97 12/13/18 11:35 89 98 12/13/18 11:33 91 H 20 155/102 H 12/13/18 11:30 93 H 97 12/13/18 11:25 93 H 98 12/13/18 11:20 78 98 12/13/18 11:15 90 97 12/13/18 11:10 82 98 12/13/18 11:05 85 97 12/13/18 11:04 98.1 F 82 20 152/100 H 12/13/18 11:00 77 97 12/13/18 10:55 90 96 12/13/18 10:50 78 97 12/13/18 10:45 78 96 12/13/18 10:40 79 97 12/13/18 10:35 89 98 12/13/18 10:34 78 20 150/96 H 12/13/18 10:30 79 97 12/13/18 10:25 81 97 12/13/18 10:20 84 98 12/13/18 10:15 83 97 12/13/18 10:10 79 96 12/13/18 10:05 85 96 12/13/18 10:02 81 20 143/88 H 12/13/18 10:01 20 12/13/18 10:00 88 96 12/13/18 09:57 87 144/102 H 12/13/18 09:55 85 97 12/13/18 09:50 95 H 97 12/13/18 09:45 84 97 12/13/18 09:41 88 142/93 H 12/13/18 09:40 76 96 12/13/18 09:35 83 97 12/13/18 09:31 97.7 F 20 12/13/18 09:30 79 159/91 H 98 12/13/18 09:25 81 96 12/13/18 09:20 77 96 12/13/18 09:15 77 96 12/13/18 09:11 83 126/84 12/13/18 09:10 77 97 12/13/18 09:05 79 97 12/13/18 09:00 77 96 12/13/18 08:56 76 20 129/81 12/13/18 08:55 81 98 12/13/18 08:50 83 98 12/13/18 08:45 91 H 98 12/13/18 08:40 85 133/85 98 12/13/18 08:35 77 97 12/13/18 08:31 20 12/13/18 08:30 79 97 12/13/18 08:25 85 136/86 98 12/13/18 08:20 77 98 12/13/18 08:15 81 97 12/13/18 08:11 76 122/80 12/13/18 08:10 78 98 12/13/18 08:05 87 98 12/13/18 08:01 20 12/13/18 08:00 98 H 98 12/13/18 07:57 90 136/99 12/13/18 07:55 81 98 12/13/18 07:50 80 98 12/13/18 07:45 98 H 97 12/13/18 07:42 98.1 F 89 20 135/102 H 12/13/18 07:40 106 H 98 12/13/18 07:35 90 97 12/13/18 07:30 103 H 97 12/13/18 07:28 99 H 153/98 H 12/13/18 07:25 99 H 150/102 H 98 12/13/18 07:20 104 H 97 12/13/18 07:15 118 H 97 12/13/18 07:11 103 H 147/103 H 12/13/18 07:10 101 H 158/106 H 97 12/13/18 07:05 91 H 97 12/13/18 07:01 20 12/13/18 07:00 101 H 97 12/13/18 06:55 88 157/98 H 96 12/13/18 06:50 95 H 97 12/13/18 06:45 98 H 97 12/13/18 06:41 98 H 174/92 H 12/13/18 06:40 104 H 98 12/13/18 06:35 102 H 98 12/13/18 06:33 88 147/99 H 12/13/18 06:30 85 98 12/13/18 06:27 18 12/13/18 06:25 82 152/101 H 98 12/13/18 06:20 80 97 12/13/18 06:15 70 97 12/13/18 06:10 67 108/67 97 12/13/18 06:05 68 96 12/13/18 06:00 67 96 12/13/18 05:56 70 108/62 19 05:55 69 96 12/13/18 05:50 67 96 12/13/18 05:45 70 97 12/13/18 05:41 69 115/62 12/13/18 05:40 72 96 12/13/18 05:35 68 96 12/13/18 05:30 69 96 12/13/18 05:25 75 116/65 96 12/13/18 05:23 18 12/13/18 05:20 69 96 12/13/18 05:15 67 96 12/13/18 05:10 75 118/64 98 12/13/18 05:07 18 12/13/18 05:05 71 97 12/13/18 05:00 68 97 12/13/18 04:55 75 123/68 97 12/13/18 04:50 75 98 12/13/18 04:45 70 97 12/13/18 04:40 76 128/80 99 12/13/18 04:35 87 98 12/13/18 04:30 79 98 12/13/18 04:25 73 122/76 97 12/13/18 04:20 82 98 12/13/18 04:15 81 98 12/13/18 04:12 75 128/82 12/13/18 04:10 74 97 12/13/18 04:05 75 97 12/13/18 04:00 90 98 12/13/18 03:59 98.1 F 18 12/13/18 03:55 74 123/88 97 12/13/ 03:50 86 97 12/13/18 03:45 83 97 12/13/18 03:40 83 121/85 97 12/13/18 03:35 86 97 12/13/18 03:30 95 H 96
[2018-12-13] MEDS ORDERED: METHYLERGONOVINE MALEATE 0.2 MG/ML AMP ONE (15:56)
[2018-12-13] MEDS ORDERED: CARBOPROST TROMETHAMINE 250 MCG/ML AMPUL ONE (17:05)
[2018-12-13] MEDS ORDERED: TRANEXAMIC ACID 100 MG/ML 10 ML VIAL ONE (17:13)
[2018-12-13 17:16] VITALS: O2SAT 97
[2018-12-13] MEDS ORDERED: DIPHTHERIA/TETANUS/PERTUSSIS 0.5 ML SYR/VIAL IM ONE (17:21)
[2018-12-13] MEDS ORDERED: BENZOCAINE 20% AER SPR 82.5 GM CAN EXT PRN (17:21)
[2018-12-13] MEDS ORDERED: ACETAMINOPHEN 325 MG TAB PO PRN (17:21)
[2018-12-13] MEDS ORDERED: CARBOPROST TROMETHAMINE 250 MCG/ML AMPUL IM ONE (17:21)
[2018-12-13] MEDS ORDERED: HYDROCORTISONE ACETATE 25 MG SUPP PR PRN (17:21)
[2018-12-13] MEDS ORDERED: SUPERCREAM 0.870% 15 GM JAR EXT PRN (17:21)
[2018-12-13] MEDS ORDERED: miSOPROStoL 200 MCG TAB PR ONE (17:21)
[2018-12-13] MEDS ORDERED: OXYTOCIN 30 UNITS/500 ML BAG IV PRN (17:21)
--- NOTE | 2018-12-13 17:29 | Delivery Summary ---
Vaginal Delivery Summary Date of Service December 13, 2018 Called by nursing to see patient after patient pushed with 2 contractions in 2nd stage, due to decels to 70-90s. Of note fht baseline about 115bpm. On arrival patient in right lateral position. SVE C/C/+2. Resumed pushing and with excellent effort, cephalic brought to +3 station. FHTs improved to 100- 110s. The patient continued to push effectively and while doing so a sizeable right labial hematoma developed. She pushed to deliver a viable female infant Apgars 8 and 9 via over small vaginal laceration. Mouth and nose bulb suctioned at perineum. Shoulders and body delivered with ease. Infant was vigorous and crying at . Cord clamped at approximately 30 seconds of life and infant to maternal abdomen where the cord was then doubly clamped and cut. Placenta delivered spontaneously and intact, three-vessel cord. Hemostasis not immediately achieved with dilute pitocin and uterine massage and drainage of the bladder for approximately 200 cc under sterile conditions. Therefore rectal cytotec 800mcg placed and after bp evaluated, hemabate also given im. Bleeding improving. Cervix and sulci intact. EBL 500 cc. Mother and baby stable recovery. The right labial hematoma remained stable in size, estimated to be 5 x7 cm. [facility] Vaginal Delivery Charge Vaginal Delivery Codes: 05718 global code for the antepartum, delivery, and post-
[2018-12-13] MEDS ORDERED: OXYTOCIN 20 UNITS in LACTATED RINGER'S 1,000 ML IV SCH (17:30)
[2018-12-13] MEDS: IBUPROFEN 600 MG TAB PO PRN (18:27)
--- NOTE | 2018-12-13 18:29 | Anesthesia Procedure Note ---
Date of Service December 13, 2018 Anesthesia Post Epidural Note Vital Signs Vital Signs: Temp Pulse Resp BP Pulse Ox 98.1 F 78 18 150/100 H 97 12/13/18 17:10 12/13/18 18:19 12/13/18 18:00 12/13/18 18:19 12/13/18 17:15 Pain Intensity Bilateral Lower Abdomen: Pain Intensity: 0 Notes Mental Status: alert / awake / arousable and participated in evaluation Nausea / Vomiting: adequately controlled Pain: adequately controlled Airway Patency, RR, SpO2: stable & adequate BP & HR: stable & adequate Hydration State: stable & adequate Neuraxial Anesthesia: was administered and sensory block is resolving Anesthetic Complications: no major complications apparent and Pt Satisfied with anesthetic care Epidural: Removed without complications and With tip intact
[2018-12-13] MEDS: OXYCODONE/ACETAMINOPHEN 5mg/325mg TAB PO PRN (21:29)
[2018-12-13] MEDS: DOCUSATE SODIUM 100 MG CAP PO SCH ×2 (21:29)
[2018-12-13] MEDS ORDERED: fentaNYL citrate 100 MCG/2 ML VIAL INT SPINAL ONE (23:19)
--- NOTE | 2018-12-14 06:42 | Obstetrical Progress Note ---
Date of Service <Gissel Johnson MD - Last Filed: 12/14/18 08:09> December 14, 2018 Assessment & Plan <Gissel Johnson MD - Last Filed: 12/14/18 08:09> (1) Gestational hypertension: 33 yo who presented yesterday for induction of labor which progressed to . Patient was GBS+ and treated prior to delivery with cefazolin due to penicillin allergy. Doing well this AM. Still has lochia drainage when getting up to bathroom and moving around. Minimal cramping and pain well controlled. 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 Streptococcus: - received 3 doses of cefazolin prior to delivery (3) Need for rhogam due to Rh negative mother: (4) Encounter for care and examination after delivery: Day #:: 1 Subjective <Gissel Johnson MD - Last Filed: 12/14/18 08:09> Ambulation: ambulating normally Voiding: no voiding problems Passing Gas:: Yes Diet Tolerance:: regular diet Feeding Type:: breast feeding Current Pain Level(1-10): 0 Constitutional: + fatigue; no fever and no chills Respiratory: no cough and no dyspnea No shortness of breath Cardiovascular: + edema; no chest pain, no syncope and no calf pain Breast: no breast pain Gastrointestinal: + cramping; no abdominal pain, no nausea, no vomiting, no constipation and no diarrhea/loose stools Genitourinary (female): no dysuria and no difficulty urinating Neurologic: no headache(s) Physical Exam <Gissel Johnson MD - Last Filed: 12/14/18 08:09> Constitutional well developed and well nourished Respiratory normal respiratory effort; no respiratory distress, no labored breathing and no cough Auscultation: no crackles, no rales, no rhonchi and no wheezes Cardiovascular Rate/Rhythm: regular rate and regular rhythm Heart Sounds: no gallop, no murmur and no cardiac rub Extremities: + pedal edema Gastrointestinal (Abdomen) Inspection/Auscultation: + abdomen distended and normal bowel sounds Percussion/Palpation: abdomen soft; abdomen nontender and no guarding Genitourinary Uterus difficult to palpate. Abdomen generally soft and nontender. Results & Data <Gissel Johnson MD - Last Filed: 12/14/18 08:09> Vital Signs (Past 12 Hours) Vital Signs Temp Pulse Pulse Resp BP BP Pulse Ox 12/14/18 03:00 36.9 C 79 18 129/85 12/13/18 23:50 36.8 C 79 16 134/82 12/13/18 20:25 36.9 C 93 H 20 124/88 97 12/13/18 19:32 85 154/90 H 12/13/18 19:30 36.8 C 20 12/13/18 19:17 78 142/95 H 12/13/18 19:02 82 154/99 H 12/13/18 18:47 74 149/98 H 12/13/18 18:45 20 <Chel Plata MD, FACOG - Last Filed: 12/14/18 08:21> Co-Signing Physician Notes Resident Physician Supervision Note: I was present with Dr. Johnson during the history and exam. I discussed the case with the resident and agree with the findings and plan as documented in the note. Any exceptions or clarifications are listed here: doing well, eating, voiding and ambulating without problem. vulvar hematoma is stable per nursing. baby is well. . on exam ff 2 down nt, vulva hematoma on right, golf ball medial side is smaller and looking like it is organizing. right labial swelling is stable. hgb noted. routine care. rh neg, will need to see what baby blood type is. Documented By: Chel Plata MD, FACOG
[2018-12-14] MEDS: IBUPROFEN 600 MG TAB PO PRN ×4 (06:52→19:28)
[2018-12-14 06:54] LABS: Hematocrit (blood only) 27.2 % (37-47); Hemoglobin 9.7 g/dL (12.0-16.0)
[2018-12-14] MEDS: DOCUSATE SODIUM 100 MG CAP PO SCH ×2 (08:26→21:12)
[2018-12-14] MEDS ORDERED: Nursing to Pharmacy Communication ONE (10:23)
[2018-12-14] MEDS: OXYCODONE/ACETAMINOPHEN 5mg/325mg TAB PO PRN (21:12)
[2018-12-15] MEDS: IBUPROFEN 600 MG TAB PO PRN ×2 (06:46→10:55)
--- NOTE | 2018-12-15 07:02 | Obstetrical Progress Note ---
Date of Service <Gissel Johnson MD - Last Filed: 12/15/18 07:44> December 15, 2018 Assessment & Plan <Gissel Johnson MD - Last Filed: 12/15/18 07:44> (1) Gestational hypertension: 33 yo PPD2 after complicated by gestational HTN, GBS+, and R labial hematoma after delivery. Doing well this AM. Decreasing lochia drainage. Still experiencing some breakthrough pain. Would benefit from closer scheduling of ibuprofen Q4 and tylenol Q8. Ambulating well. D/C today pending repeat audiology screen for baby. 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 Streptococcus: - received 3 doses of cefazolin prior to delivery (3) Need for rhogam due to Rh negative mother: (4) Encounter for care and examination after delivery: Subjective <Gissel Johnson MD - Last Filed: 12/15/18 07:44> Current Pain Level(1-10): 3 STill experiencing breakthrough pain, Constitutional: + fatigue; no fever and no chills Cardiovascular: + edema; no chest pain, no syncope and no calf pain Gastrointestinal: + cramping; no abdominal pain, no nausea, no vomiting, no constipation and no diarrhea/loose stools Physical Exam <Gissel Johnson MD - Last Filed: 12/15/18 07:44> Constitutional well developed and well nourished Respiratory normal respiratory effort; no respiratory distress, no labored breathing and no cough Auscultation: no crackles, no rales, no rhonchi and no wheezes Cardiovascular Rate/Rhythm: regular rate and regular rhythm Heart Sounds: no gallop, no murmur and no cardiac rub Extremities: + pedal edema Gastrointestinal (Abdomen) Inspection/Auscultation: + abdomen distended and normal bowel sounds Percussion/Palpation: abdomen soft; abdomen nontender and no guarding Genitourinary Uterus firm to palpation, nontender, palpable 2 fingerbreadths below umbilicus R labial hematoma: firm, same size as yesterday. Results & Data <Gissel Johnson MD - Last Filed: 12/15/18 07:44> Vital Signs (Past 12 Hours) Vital Signs Temp Pulse Resp BP Pulse Ox 12/15/18 01:15 36.6 C 84 17 118/77 97 12/14/18 20:05 36.7 C 82 16 119/77 97 <Aileen Messer MD - Last Filed: 12/15/18 08:48> Co-Signing Physician Notes I have reviewed the resident's note and examined the patient myself, and agree with the note above. Resident Activity Tracking <Gissel Johnson MD - Last Filed: 12/15/18 07:44> Resident Involvement: Resident Care Provided Care Provided: OB Delivery
[2018-12-15] MEDS: DOCUSATE SODIUM 100 MG CAP PO SCH (08:30)
[2018-12-15 09:04] VITALS: BP 120/82; PULSE 98; TEMP 98.2
[2018-12-15] MEDS ORDERED: INFLUENZA VIRUS QUAD VACCINE 0.5 ML SYR IM ONE (10:00)
[2018-12-15] MEDS ORDERED: INFLUENZA ADMINISTRATION CHARGE ONE (10:00)
== END 2018-12-15 13:22 | disposition home or self-care (01) | DRG 807 ==
LOC: 4S1 07:51 → 4S2 12-13 19:55

== ENCOUNTER 2020-12-01 03:37 | Inpatient (IN) ==
[2020-12-01] MEDS ORDERED: OXYTOCIN 30 UNITS/500 ML BAG IV PRN ×3 (05:09→18:35)
[2020-12-01 06:34] LABS: Hematocrit (blood only) 36.1 % (37-47); Hemoglobin 12.4 g/dL (12.0-16.0); Mean Corpuscular Hemoglobin 32.5 pg (25-34); Mean Corpuscular Hgb Conc 34.3 g/dL (32-36); Mean Corpuscular Volume 94.5 fL (80-100); Mean Platelet Volume 9.9 fL (7.4-10.4); Platelet Count 328 K/uL (130-400); RDW Coefficient of Variation 13.4 % (11.5-14.5); RDW Standard Deviation 46.1 fL (36.4-46.3); Red Blood Count 3.82 M/uL (4.2-5.4); White Blood Count 11.08 K/uL (4.8-10.8)
[2020-12-01] MEDS: LACTATED RINGER'S 1,000 ML IV PRN ×3 (06:52→14:13)
--- NOTE | 2020-12-01 06:58 | Labor Progress Brief Note ---
Date of Service December 01, 2020 Subjective Patient admitted earlier this morning after c/o SROM at home. At that time she had good FM, no VB, fluid was clear, and there were no contractions. She arrived to L&D and was found to be 3cm with mild irregular contractions that she was only just beginning to feel. FHT were Cat 1 and she desired exp mgmt. I am now arriving to reassess the patient after interval. She is not painful but is getting more aware of her contractions, which are now Q4-5min regular. LOF continues and is clear, copious. After discussing cervix is slightly changed to 4cm but station is very high, I recommended pitocin to bring head further down, and patient / FOB are agreeable to that plan. Epidural is available at any time and she is considering when to request that. She is aware I don't recommend ambulation even if she declines to get epidural for now, as the head is still very high and fluid leakage is copious, setting up a risk for cord prolapse. Assessment & Plan (1) SROM (spontaneous rupture of membranes): Plan: Likely in early labor now, with SROM earlier this morning. Discussed options of expectant management vs augmentation with pitocin. The head is still very high, with copious leakage and a 4cm dilated cervix, so we discussed that I recommend using pitocin to apply the head / bring it down lower to reduce the risk of cord prolapse. She and FOB are agreeable. Epidural available at any time, prefer she not ambulate regardless until head is better applied. Admission and Anticipated Discharge Date Admission Date: December 01, 2020 Physical Exam Constitutional: WD/WN, vitals as above Eyes: PERRL, conjunctivae normal, anicteric sclerae ENMT: external ear and nose normal, oropharynx normal Neck: supple Respiratory: normal respiratory effort and able to speak in complete sentences; no respiratory distress Cardiovascular: Rate/Rhythm: regular rate and regular rhythm Extremities: + pedal edema Gastrointestinal (Abdomen): Gravid / AGA, nontender Musculoskeletal: no cyanosis or clubbing, extremities motor strength 5/5 Skin: no rashes, warm and dry Psychiatric: A+Ox3, euthymic affect Genitourinary: Speculum/Bimanual Exam: no vaginal lesions, no vaginal bleeding and uterus nontender OB Exam Abdomen: + vertex and + estimated weight (7) Manual OB Exam: + cervical dilation 4 cm, + cervical effacement 80%, + station high and + amniotic fluid clear OB Exam Monitor Tracing: + external FHT monitor used, + external uterine monitor used and + category I Results & Data ([facility]) Vital Signs (Past 12 Hours) Vital Signs Temp Pulse Resp BP 12/01/20 06:01 98.1 F 12/01/20 04:28 98.1 F 96 H 18 135/85 12/01/20 03:59 98.1 F 96 H 18 135/85 Coding Level of Care Code None Diagnoses SROM (spontaneous rupture of membranes)
[2020-12-01] MEDS ORDERED: fentaNYL citrate 100 MCG/2 ML VIAL ONE (07:12)
[2020-12-01] MEDS ORDERED: SODIUM CHLORIDE 0.9% INJ 10 ML VIAL ONE (07:12)
[2020-12-01] MEDS ORDERED: ePHEDrine sulfate 50 MG/ML AMP ONE (07:12)
[2020-12-01] MEDS ORDERED: BUPIVACAINE 0.25% 30 ML VIAL ONE (07:12)
[2020-12-01] MEDS ORDERED: ePHEDrine sulfate 50 MG/ML AMP IV PRN (07:13)
[2020-12-01] MEDS ORDERED: fentaNYL 2MCG/ML ROPIVACAINE 1.25MG/ML 100 ML BAG EPI PRN (07:13)
[2020-12-01] MEDS ORDERED: fentaNYL 2MCG/ML ROPIVACAINE 1.25MG/ML 100 ML BAG EPI ONE (07:13)
[2020-12-01] MEDS ORDERED: NALBUPHINE HCL INJ 10 MG/ML AMP IV PRN (07:13)
[2020-12-01] MEDS ORDERED: NALOXONE HCL 1 MG in SODIUM CHLORIDE 0.9% 1000ML 1,000 ML IV PRN (07:13)
[2020-12-01] MEDS ORDERED: diphenhydrAMINE 50 MG/ML VIAL IV PRN (07:13)
[2020-12-01] MEDS ORDERED: NALOXONE HCL 0.4 MG/1 ML VIAL/CARP IV PRN (07:13)
[2020-12-01] MEDS ORDERED: ONDANSETRON INJ 2 MG/ML 2 ML VIAL IV PRN (07:14)
--- NOTE | 2020-12-01 07:17 | Anesthesiology Consultation ---
Date of Service December 01, 2020 Assessment & Plan 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: Acceptable Risk for Labor Epidural ASA ASA2 Proposed Anesthesia Anesthesia Type: Labor Epidural Risk / Benefits Reviewed With: PT / POA / Parent / Guardian, Accepts Plan and Informed Consent Obtained History Height/Weight Height: 5 ft 4 in Weight: 110.677 kg Allergies Allergy/AdvReac Type Severity Reaction Status Date / Time Penicillins Allergy Intermediate Hives Verified 11/27/20 16:31 Medications Home Medications Medication Instructions Recorded Confirmed Last Taken breast pump #1 ea 09/25/20 11/27/20 Unknown docusate sodium 50 mg capsule 50 mg PO DAILY 12/01/20 12/01/20 11/30/20 08:00 vits no.124-ferrous fum 1 tab PO DAILY 12/01/20 12/01/20 11/30/20 08:00 27 mg iron-folic acid 800 mcg tablet ( Vitamin) Active Medications Generic Name Dose Route Start Last Admin Trade Name Freq PRN Reason Stop Dose Admin Lactated Ringer's 1,000 mls @ 125 mls/hr 12/01/20 05:09 12/01/20 07:48 Lr IV 12/03/20 05:08 125 mls/hr .Q8H PRN Administration L&D Protocol Protocol Past Medical History Medical History (Updated 12/01/20 @ 06:57 by Aileen Messer MD) History of miscarriage Missed Exercise / Class Metabolic Activity II 4-5 Yardwork/Stairs/Walk up hill Past Family History Family History Grandmother (Maternal) Heart disease Breast cancer Grandfather (Maternal) Heart disease Grandfather (Paternal) Heart disease Mother Hypertension Father Dyslipidemia Hypertension Other No family history of adverse response to anesthesia Denies family history of Deep vein thrombosis Clotting disorder Bleeding disorder Past Surgical History Surgical History History of colposcopy S/P dilation and curettage US guided D&E for MAB [place] teeth removed Past Anesthesia History No Hx of Anesthesia Complications and No Family Hx of Anesthesia Complications History of PONV No Hx of PONV and No Hx of Motion Sickness Social History Smoking Status: Never smoker Do You Dip or Chew Tobacco: No Hx Alcohol Use: No Hx Substance Use: No substance use type: does not use Review of Systems denies fever/cough/ colds/ chest pain/ SOB/ GENO denies GENO Physical Exam Vital Signs Last Vital Signs Temp 36.7 C 12/01/20 07:09 Pulse 98 H 12/01/20 08:16 Resp 18 12/01/20 07:09 BP 131/87 12/01/20 08:14 Pulse Ox 96 12/01/20 08:16 ENMT Mouth: no TMJ abnormality and no dentition abnormality Thyromental Distance: > or= 3.5 Finger Breadths Mallampati Class: II Neck neck extension not limited Respiratory normal respiratory effort; no respiratory distress Auscultation: lungs clear to auscultation bilaterally Cardiovascular Rate/Rhythm: regular rate and regular rhythm Neurologic moves all extremities Psychiatric Orientation: alert and oriented x 3 Testing Laboratory Results 12/01/20 06:04
--- NOTE | 2020-12-01 11:25 | Labor Progress Brief Note ---
Date of Service December 01, 2020 Subjective comfortable Assessment & Plan (1) SROM (spontaneous rupture of membranes): Plan: continues to be very high. iupc placed. will restart pitocin. fetus now category one. Admission and Anticipated Discharge Date Admission Date: December 01, 2020 Physical Exam Physical Exam: cx--4-5/80/-3 iupc placed toco--q4-5min, pit off currently efm--had a decel to 90s for a few minutes. pit off, position change, o2 on. REcovered. may have occured with a period or hyperstim? difficult to determine. has recovered to 150s with mod variability, +scalp stim Results & Data ([facility]) Vital Signs (Past 12 Hours) Vital Signs Temp Pulse Resp BP Pulse Ox 12/01/20 11:16 92 H 100 12/01/20 11:14 92 H 141/88 H 12/01/20 11:11 101 H 98 12/01/20 11:06 87 98 12/01/20 11:01 99 H 97 12/01/20 10:59 100 H 151/92 H 12/01/20 10:56 83 97 12/01/20 10:51 94 H 98 12/01/20 10:46 82 97 12/01/20 10:43 80 149/85 H 12/01/20 10:41 86 97 12/01/20 10:36 87 98 12/01/20 10:31 88 98 12/01/20 10:28 87 143/87 H 12/01/20 10:26 85 99 12/01/20 10:21 96 H 100 12/01/20 10:16 105 H 100 12/01/20 10:14 100 H 134/91 12/01/20 10:11 97 H 100 12/01/20 10:06 112 H 100 12/01/20 10:01 86 96 12/01/20 09:59 110 H 131/92 12/01/20 09:56 126 H 97 12/01/20 09:51 132 H 97 12/01/20 09:46 138 H 98 12/01/20 09:45 134 H 131/83 12/01/20 09:41 138 H 97 12/01/20 09:36 106 H 97 12/01/20 09:31 88 98 12/01/20 09:28 82 128/76 12/01/20 09:26 80 96 12/01/20 09:21 83 96 12/01/20 09:16 88 96 12/01/20 09:13 93 H 127/82 12/01/20 09:11 91 H 98 12/01/20 09:06 101 H 97 12/01/20 09:01 98 H 96 12/01/20 08:58 88 123/77 12/01/20 08:56 102 H 97 12/01/20 08:51 93 H 97 12/01/20 08:46 89 96 12/01/20 08:43 97 H 125/81 12/01/20 08:41 89 96 12/01/20 08:36 83 96 12/01/20 08:31 88 96 12/01/20 08:28 84 134/85 12/01/20 08:26 94 H 97 12/01/20 08:21 88 96 12/01/20 08:16 98 H 96 12/01/20 08:14 98 H 131/87 12/01/20 08:11 96 H 98 12/01/20 08:06 96 H 97 12/01/20 08:01 104 H 97 12/01/20 07:56 95 H 98 12/01/20 07:53 100 H 141/82 H 12/01/20 07:51 103 H 98 12/01/20 07:48 89 122/71 12/01/20 07:46 96 H 97 12/01/20 07:43 92 H 124/75 12/01/20 07:41 100 H 122/77 98 12/01/20 07:39 101 H 117/79 12/01/20 07:37 98 H 128/72 12/01/20 07:36 99 H 98 12/01/20 07:35 96 H 127/69 12/01/20 07:34 90 138/86 12/01/20 07:31 108 H 140/99 99 12/01/20 07:26 97 H 99 12/01/20 07:21 101 H 100 12/01/20 07:09 36.7 C 104 H 18 131/81 12/01/20 06:01 36.7 C 12/01/20 04:28 36.7 C 96 H 18 135/85 12/01/20 03:59 36.7 C 96 H 18 135/85 Coding Level of Care Code None Diagnoses SROM (spontaneous rupture of membranes)
--- NOTE | 2020-12-01 13:40 | Labor Progress Brief Note ---
Date of Service December 01, 2020 Subjective getting uncomfortable Assessment & Plan (1) SROM (spontaneous rupture of membranes): Plan: continue current management. Fetus category one. Admission and Anticipated Discharge Date Admission Date: December 01, 2020 Physical Exam Physical Exam: cx--unchanged toco--q2min, pit at 7, Mvus close to >200 efm--130s with mod variaiblity, accels to 160s, no decels Results & Data ([facility]) Vital Signs (Past 12 Hours) Vital Signs Temp Pulse Resp BP Pulse Ox 12/01/20 13:36 89 98 12/01/20 13:31 87 98 12/01/20 13:29 109 H 148/90 H 12/01/20 13:26 93 H 97 12/01/20 13:21 96 H 97 12/01/20 13:16 91 H 97 12/01/20 13:13 85 146/84 H 12/01/20 13:11 84 96 12/01/20 13:06 80 96 12/01/20 13:01 78 96 12/01/20 12:58 79 141/86 H 12/01/20 12:56 71 96 12/01/20 12:51 88 97 12/01/20 12:46 108 H 97 12/01/20 12:43 89 137/85 12/01/20 12:41 82 97 12/01/20 12:36 87 97 12/01/20 12:31 82 98 12/01/20 12:29 80 129/84 12/01/20 12:26 79 97 12/01/20 12:21 108 H 97 12/01/20 12:16 92 H 98 12/01/20 12:14 89 138/84 12/01/20 12:11 89 97 12/01/20 12:06 85 97 12/01/20 12:01 93 H 97 12/01/20 11:59 89 119/71 12/01/20 11:56 83 98 12/01/20 11:51 79 98 12/01/20 11:46 84 98 12/01/20 11:44 81 118/62 12/01/20 11:41 92 H 99 12/01/20 11:36 84 99 12/01/20 11:31 85 99 12/01/20 11:28 85 137/73 12/01/20 11:26 87 98 12/01/20 11:21 86 99 12/01/20 11:16 92 H 100 12/01/20 11:14 92 H 141/88 H 12/01/20 11:11 101 H 98 12/01/20 11:06 87 98 12/01/20 11:01 99 H 97 12/01/20 11:00 36.7 C 99 H 18 151/92 H 97 12/01/20 10:59 100 H 151/92 H 12/01/20 10:56 83 97 12/01/20 10:51 94 H 98 12/01/20 10:46 82 97 12/01/20 10:43 80 149/85 H 12/01/20 10:41 86 97 12/01/20 10:36 87 98 12/01/20 10:31 88 98 12/01/20 10:28 87 143/87 H 12/01/20 10:26 85 99 12/01/20 10:21 96 H 100 12/01/20 10:16 105 H 100 12/01/20 10:14 100 H 134/91 12/01/20 10:11 97 H 100 12/01/20 10:06 112 H 100 12/01/20 10:01 86 96 12/01/20 09:59 110 H 131/92 12/01/20 09:56 126 H 97 12/01/20 09:51 132 H 97 12/01/20 09:46 138 H 98 12/01/20 09:45 134 H 131/83 12/01/20 09:41 138 H 97 12/01/20 09:36 106 H 97 12/01/20 09:31 88 98 12/01/20 09:28 82 128/76 12/01/20 09:26 80 96 12/01/20 09:21 83 96 12/01/20 09:16 88 96 12/01/20 09:13 93 H 127/82 12/01/20 09:11 91 H 98 12/01/20 09:06 101 H 97 12/01/20 09:01 98 H 96 12/01/20 08:58 36.7 C 102 H 18 123/77 97 12/01/20 08:56 102 H 97 12/01/20 08:51 93 H 97 12/01/20 08:46 89 96 12/01/20 08:43 97 H 125/81 12/01/20 08:41 89 96 12/01/20 08:36 83 96 12/01/20 08:31 88 96 12/01/20 08:28 84 134/85 12/01/20 08:26 94 H 97 12/01/20 08:21 88 96 12/01/20 08:16 98 H 96 12/01/20 08:14 98 H 131/87 12/01/20 08:11 96 H 98 12/01/20 08:06 96 H 97 12/01/20 08:01 104 H 97 12/01/20 07:56 95 H 98 12/01/20 07:53 100 H 141/82 H 12/01/20 07:51 103 H 98 12/01/20 07:48 89 122/71 12/01/20 07:46 96 H 97 12/01/20 07:43 92 H 124/75 12/01/20 07:41 100 H 122/77 98 12/01/20 07:39 101 H 117/79 12/01/20 07:37 98 H 128/72 12/01/20 07:36 99 H 98 12/01/20 07:35 96 H 127/69 12/01/20 07:34 90 138/86 12/01/20 07:31 108 H 140/99 99 12/01/20 07:26 97 H 99 12/01/20 07:21 101 H 100 12/01/20 07:09 36.7 C 104 H 18 131/81 12/01/20 06:01 36.7 C 12/01/20 04:28 36.7 C 96 H 18 135/85 12/01/20 03:59 36.7 C 96 H 18 135/85 Coding Level of Care Code None Diagnoses SROM (spontaneous rupture of membranes)
--- NOTE | 2020-12-01 15:58 | Anesthesiology Progress Note ---
Date of Service December 01, 2020 Anesthesia Post Procedure Vital Signs Vital Signs: Temp Pulse Resp BP Pulse Ox 12/01/20 15:44 90 132/78 12/01/20 15:29 96 H 129/75 12/01/20 15:15 103 H 155/76 H 12/01/20 15:14 98 H 153/67 H 12/01/20 15:06 104 H 96 12/01/20 15:01 137 H 93 12/01/20 14:56 104 H 100 12/01/20 14:51 87 100 12/01/20 14:46 88 97 12/01/20 14:44 87 140/82 12/01/20 14:41 82 98 12/01/20 14:36 103 H 98 12/01/20 14:31 90 98 12/01/20 14:28 87 146/88 H 12/01/20 14:26 94 H 97 12/01/20 14:21 91 H 98 12/01/20 14:16 93 H 98 12/01/20 14:15 82 140/81 12/01/20 14:11 87 98 12/01/20 14:06 97 H 97 12/01/20 14:01 91 H 97 12/01/20 14:00 86 137/90 12/01/20 13:56 80 97 12/01/20 13:51 98 H 98 12/01/20 13:46 99 H 97 12/01/20 13:45 90 138/89 12/01/20 13:41 87 97 12/01/20 13:36 89 98 12/01/20 13:31 87 98 12/01/20 13:29 109 H 148/90 H 12/01/20 13:26 93 H 97 12/01/20 13:21 96 H 97 12/01/20 13:16 91 H 97 12/01/20 13:13 36.5 C 90 18 146/84 H 97 12/01/20 13:11 84 96 12/01/20 13:06 80 96 12/01/20 13:01 78 96 12/01/20 12:58 79 141/86 H 12/01/20 12:56 71 96 12/01/20 12:51 88 97 12/01/20 12:46 108 H 97 12/01/20 12:43 89 137/85 12/01/20 12:41 82 97 12/01/20 12:36 87 97 12/01/20 12:31 82 98 12/01/20 12:29 80 129/84 12/01/20 12:26 79 97 12/01/20 12:21 108 H 97 12/01/20 12:16 92 H 98 12/01/20 12:14 89 138/84 12/01/20 12:11 89 97 12/01/20 12:06 85 97 12/01/20 12:01 93 H 97 12/01/20 11:59 89 119/71 12/01/20 11:56 83 98 12/01/20 11:51 79 98 12/01/20 11:46 84 98 12/01/20 11:44 81 118/62 12/01/20 11:41 92 H 99 12/01/20 11:36 84 99 12/01/20 11:31 85 99 12/01/20 11:28 85 137/73 12/01/20 11:26 87 98 12/01/20 11:21 86 99 12/01/20 11:16 92 H 100 12/01/20 11:14 92 H 141/88 H 12/01/20 11:11 101 H 98 12/01/20 11:06 87 98 12/01/20 11:01 99 H 97 12/01/20 11:00 36.7 C 99 H 18 151/92 H 97 12/01/20 10:59 100 H 151/92 H 12/01/20 10:56 83 97 12/01/20 10:51 94 H 98 12/01/20 10:46 82 97 12/01/20 10:43 80 149/85 H 12/01/20 10:41 86 97 12/01/20 10:36 87 98 12/01/20 10:31 88 98 12/01/20 10:28 87 143/87 H 12/01/20 10:26 85 99 12/01/20 10:21 96 H 100 12/01/20 10:16 105 H 100 12/01/20 10:14 100 H 134/91 12/01/20 10:11 97 H 100 12/01/20 10:06 112 H 100 12/01/20 10:01 86 96 12/01/20 09:59 110 H 131/92 12/01/20 09:56 126 H 97 12/01/20 09:51 132 H 97 12/01/20 09:46 138 H 98 12/01/20 09:45 134 H 131/83 12/01/20 09:41 138 H 97 12/01/20 09:36 106 H 97 12/01/20 09:31 88 98 12/01/20 09:28 82 128/76 12/01/20 09:26 80 96 12/01/20 09:21 83 96 12/01/20 09:16 88 96 12/01/20 09:13 93 H 127/82 12/01/20 09:11 91 H 98 12/01/20 09:06 101 H 97 12/01/20 09:01 98 H 96 12/01/20 08:58 36.7 C 102 H 18 123/77 97 12/01/20 08:56 102 H 97 12/01/20 08:51 93 H 97 12/01/20 08:46 89 96 12/01/20 08:43 97 H 125/81 12/01/20 08:41 89 96 12/01/20 08:36 83 96 12/01/20 08:31 88 96 12/01/20 08:28 84 134/85 12/01/20 08:26 94 H 97 12/01/20 08:21 88 96 12/01/20 08:16 98 H 96 12/01/20 08:14 98 H 131/87 12/01/20 08:11 96 H 98 12/01/20 08:06 96 H 97 12/01/20 08:01 104 H 97 12/01/20 07:56 95 H 98 12/01/20 07:53 100 H 141/82 H 12/01/20 07:51 103 H 98 12/01/20 07:48 89 122/71 12/01/20 07:46 96 H 97 12/01/20 07:43 92 H 124/75 12/01/20 07:41 100 H 122/77 98 12/01/20 07:39 101 H 117/79 12/01/20 07:37 98 H 128/72 12/01/20 07:36 99 H 98 12/01/20 07:35 96 H 127/69 12/01/20 07:34 90 138/86 12/01/20 07:31 108 H 140/99 99 12/01/20 07:26 97 H 99 12/01/20 07:21 101 H 100 12/01/20 07:09 36.7 C 104 H 18 131/81 12/01/20 06:01 36.7 C 12/01/20 04:28 36.7 C 96 H 18 135/85 12/01/20 03:59 36.7 C 96 H 18 135/85 Pain Intensity Lower Medial Abdomen: Pain Intensity: 3 Transfer of Care Handoff Completed per policy Notes Mental Status: alert / awake / arousable and participated in evaluation Patient Amnestic to Procedure: Yes Nausea / Vomiting: adequately controlled Pain: adequately controlled Airway Patency, RR, SpO2: stable & adequate BP & HR: stable & adequate Hydration State: stable & adequate Anesthetic Complications: no major complications apparent and Pt Satisfied with anesthetic care
[2020-12-01] MEDS ORDERED: IBUPROFEN 600 MG TAB PO ONE (16:54)
[2020-12-01] MEDS ORDERED: BENZOCAINE 20% AER SPR 82.5 GM CAN EXT PRN (18:35)
[2020-12-01] MEDS ORDERED: SUPERCREAM 0.870% 15 GM JAR EXT PRN (18:35)
[2020-12-01] MEDS ORDERED: HYDROCORTISONE ACETATE 25 MG SUPP PR PRN (18:35)
[2020-12-01] MEDS ORDERED: bisacodyL 10 MG SUPP PR PRN (18:35)
[2020-12-01] MEDS ORDERED: DIPHTHERIA/TETANUS/PERTUSSIS 0.5 ML SYR/VIAL IM ONE (18:35)
[2020-12-01] MEDS: ACETAMINOPHEN 325 MG TAB PO PRN (20:05)
--- NOTE | 2020-12-01 20:48 | Delivery Summary ---
DATE OF SERVICE: 12/01/2020 PROCEDURE: Normal spontaneous vaginal delivery. SURGEON: Ja Mcneill MD. ESTIMATED BLOOD LOSS: 200 mL. DRAINS: None. FLUIDS: Continuous lactated Ringer. URINE OUTPUT: Not measured. COMPLICATIONS: None. FINDINGS: Viable male with weight and Apgars pending. DESCRIPTION OF PROCEDURE: The patient progressed to 10 cm dilated, 100% effaced, positive 1 station, pushed over intact perineum with epidural anesthesia and delivered a viable male , weight and Apgars as noted above. Head of the delivered in LEONILA position, restituted to right transverse . Nuchal cord x2 was noted, which was loose and easily reduced. Body and shoulders quickly followed . was noted to be vigorous soon after delivery and 1 minute delayed cord clamping was initia misty. Cord was then double clamped and cut. remained on maternal abdomen. Cord blood was ob tained. Attention was then turned to delivery of placenta, which was delivered intact, 3-vessel cord , gentle cord traction. On inspection of the perineum, vagina, cervix, there was noted to be no lace rations. Sponge and instrument counts were correct at the completion of the case. Both mother and ne radha are stable in the immediate post-delivery period. Job ID: [id number]
[2020-12-01] MEDS: DOCUSATE SODIUM 100 MG CAP PO SCH (21:11)
[2020-12-01] MEDS: IBUPROFEN 600 MG TAB PO PRN (21:12)
[2020-12-02] MEDS: IBUPROFEN 600 MG TAB PO PRN ×3 (03:30→14:12)
--- NOTE | 2020-12-02 07:24 | Obstetrical Progress Note ---
Date of Service <Tania Forrest MD - Last Filed: 12/02/20 08:29> December 02, 2020 Assessment & Plan <Tania Forrest MD - Last Filed: 12/02/20 08:29> (1) Encounter for care and examination after delivery: PPD1, stable; routine care -tolerating diet -pain well managed -breast feeding -d/c post circumcision, likely PM today -OB f/u outpt in 6 wks. <Ja Mcneill MD - Last Filed: 12/02/20 12:29> (1) Encounter for care and examination after delivery: Subjective <Tania Forrest MD - Last Filed: 12/02/20 08:29> Lacey is a 35 y/o female who is now PPD #1 following spontaneous vaginal delivery at 39.5 weeks. Reports feeling well this morning. Occasional abdominal cramping pain well managed on analgesics. Voiding +. Tolerating meals well and able to ambulate some. + passing gas and has had 1 bowel movement. Some lochia with improvement this morning. . Review of Systems Denies fever, chills, sweats Denies shortness of breath, difficulty breathing, chest pain, palpitations, chest pressure. Denies breast pain. Denies dysuria. Denies headache or changes in vision Physical Exam <Tania Forrest MD - Last Filed: 12/02/20 08:29> General: Alert, oriented. No acute distress. Cardiac: Regular rate and rhythm, no murmurs/rubs/gallops. Respiratory: Clear to auscultation bilaterally a/p, no wheezes/rales/rhonchi. No increased work of breathing. Symmetrical chest rise. No respiratory distress. Abdomen: Soft, nontender, nondistended. Bowel sounds present. Uterus: Uterine fundus firm, palpable 6 cm below umbilicus. Lower Extremities: No lower extremity edema or swelling. No deep calf pain. Isidro's negative bilaterally.. Results & Data ([facility]) <Tania Forrest MD - Last Filed: 12/02/20 08:29> Vital Signs (Past 12 Hours) Vital Signs Temp Pulse Resp BP Pulse Ox 12/02/20 03:20 36.8 C 73 18 129/86 98 10/11/21 23:00 36.7 C 71 18 127/86 98 12/01/20 20:10 36.8 C 85 18 139/86 97 <Ja Mcneill MD - Last Filed: 12/02/20 12:29> Co-Signing Physician Notes Patient seen and evaluated and agree with the above findings and plan. Stable for discharge at 24hr post delivery. Resident Activity Tracking <Tania Forrest MD - Last Filed: 12/02/20 08:29> Resident Involvement: Resident Care Provided Care Provided: OB Delivery
[2020-12-02] MEDS ORDERED: FERROUS SULFATE 325 MG TAB PO SCH (08:00)
[2020-12-02] MEDS ORDERED: PRENATAL VITAMIN 1 TAB PO SCH (08:00)
[2020-12-02] MEDS: DOCUSATE SODIUM 100 MG CAP PO SCH (08:35)
[2020-12-02] MEDS: ACETAMINOPHEN 325 MG TAB PO PRN (16:47)
[2020-12-02] MEDS ORDERED: bisacodyL 5 MG TABEC PO SCH (20:00)
== END 2020-12-02 18:41 | disposition home or self-care (01) | DRG 807 ==
LOC: OPB 03:37 → 4S1 03:39 → 4S2 18:28

== ENCOUNTER 2023-07-11 05:34 | Inpatient (IN) ==
--- NOTE | 2023-06-30 09:02 | Anesthesiology Consultation ---
Date of Service June 30, 2023 Assessment & Plan (1) Encounter for pre-operative examination: - 12/12/2018 epidural L4-L5 1 attempt. 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 History Surgery Operation Date: 07/11/23 07:30 Proposed Procedures p Section (Delivery of Baby Through Abdominal Incision) - Monique Navarro DO Height/Weight Height: 5 ft 4 in Weight: 117.934 kg Allergies Allergy/AdvReac Type Severity Reaction Status Date / Time Penicillins Allergy Intermediate Hives Verified 06/30/23 08:05 Medications Home Medications Medication Instructions Recorded Confirmed Last Taken vits no.124-ferrous fum 1 tab PO QPM 12/01/20 06/30/23 11/30/20 08:00 27 mg iron-folic acid 800 mcg tablet ( Vitamin) famotidine 10 mg tablet (Acid 10 mg PO BID 03/04/23 06/30/23 Unknown Lavender Farm Worker (famotidine)) breast pump #1 ea 03/31/23 06/27/23 Unknown docusate sodium 100 mg capsule 100 mg PO QPM 06/30/23 06/30/23 Unknown (Colace) loratadine 10 mg tablet 10 mg PO QPM 06/30/23 06/30/23 Unknown Past Medical History Medical History Heartburn History of miscarriage x2 (2018 and 12/2019) Seasonal allergies Past Family History Family History Grandmother (Maternal) Heart disease Breast cancer Grandfather (Maternal) Heart disease Grandfather (Paternal) Heart disease Mother Hypertension Father Dyslipidemia Hypertension Other No family history of adverse response to anesthesia Denies family history of Deep vein thrombosis Clotting disorder Bleeding disorder Past Surgical History Surgical History History of colposcopy S/P dilation and curettage US guided D&E for MAB [place] teeth removed Social History Smoking Status: Never smoker Do You Dip or Chew Tobacco: No Hx Alcohol Use: No Hx Substance Use: No substance use type: does not use
[2023-07-11] MEDS: LACTATED RINGER'S 1,000 ML IV SCH (06:00)
[2023-07-11] MEDS ORDERED: SODIUM CHLORIDE 0.9% 250 ML IV PRN ×2 (06:31→22:33)
[2023-07-11] MEDS: CITRIC ACID/SODIUM CITRATE 15 ML UDC PO SCH (07:18)
[2023-07-11 07:24] LABS: Basophils # (auto) 0.04 K/uL (0.00-0.20); Basophils % (auto) 0.5 %; Eosinophils # (auto) 0.07 K/uL (0.00-0.50); Eosinophils % (auto) 0.8 %; Hemoglobin 11.8 g/dl (12.0-16.0); Immature Granulocytes # (auto) 0.03 K/uL (0.01-0.20); Immature Granulocytes % (auto) 0.3 %; Lymphocytes # (auto) 1.74 K/uL (1.20-3.40); Mean Corpuscular Hemoglobin 32.2 pg (25.0-34.0); Mean Corpuscular Hgb Conc 34.7 g/dL (32.0-36.0); Mean Corpuscular Volume 92.6 fL (80.0-100.0); Mean Platelet Volume 10.8 fL (9.4-12.4); Monocytes # (auto) 0.55 K/uL (0.11-0.59); Monocytes % (auto) 6.3 %; Neutrophils # (auto) 6.26 K/uL (1.40-6.50); Neutrophils % (auto) 72.1 %; Platelet Count 278 K/uL (130-400); RDW Coefficient of Variation 13.8 % (11.5-14.5); RDW Standard Deviation 46.6 fL (36.4-46.3); Red Blood Count 3.67 M/uL (4.20-5.40); White Blood Count 8.69 K/ul (4.8-10.8)
--- NOTE | 2023-07-11 07:46 | History & Physical Report ---
Date of Service July 11, 2023 Assessment & Plan (1) Encounter for induction of labor: Plan L&D order set placed, including, CBC w/out diff, CMP, blood bank hold, IV fluids (LR, 125 mL/hr), and Oxytocin (0.06 U/hr for labor augmentation), and Oxytocin, PRN (20 U/hr, for bleeding). Due to pt's GBS+ status and penicillin allergy (hives in mid 20s), pt started on cefazolin, 2000 mg, IV loading dose, followed by cefazolin, 1000 mg, q8hr, IV afterwards. External heart monitor and external tocodynamometer already placed. Patient will consider AROM, balloon catheter, epidural as she progresses. Admission and Anticipated Discharge Date Admission Date: July 11, 2023 History of Present Illness Chief Complaint: induction of labor Primary Care Provider: Raine Plata MD , 39 weeks confirmed via (ultrasound). Here for Induction of labor. Complications with this include GBS+, LGA, previous (until today) breech presentation. Has been attending OB appointments regularly. Currently taking docusate, famotidine, loratadine, vitamins, and Tums as needed. Contractions: minor contractions far apart Fluid or Blood loss: none Movement: active Labs - Blood type, O- - Antibody screen, negative - Hgb, 11.8 - Hct, 34.0 - Wbc, 8.7 - Plt, 278 - Rubella, non-reactive - VDRL/RPR, non-reactive - Gonorrhea, not detected - Chlamydia, not detected - HIV, neg - HbSAg, neg - GBS, pos - Glucose tolerance x 2 Allergies Allergy/AdvReac Type Severity Reaction Status Date / Time Penicillins Allergy Intermediate Hives Verified 07/11/23 06:37 Home Medications Medication Instructions Recorded Confirmed Type vits no.124-ferrous fum 1 tab PO QPM 12/01/20 07/08/23 History 27 mg iron-folic acid 800 mcg tablet ( Vitamin) famotidine 10 mg tablet (Acid 10 mg PO BID 03/04/23 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/23 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)) breast pump #1 ea 03/31/23 07/08/23 Rx docusate sodium 100 mg capsule 100 mg PO QPM 06/30/23 07/11/23 History (Colace) loratadine 10 mg tablet 10 mg PO QPM 06/30/23 07/11/23 History Past Med/Surg History Problem List (Updated 07/11/23 @ 09:12 by Chuy Varela MD) Encounter for induction of labor Breech presentation Encounter for follow-up ultrasound of anatomy AMA (advanced maternal age) multigravida 35+ Encounter for anatomic survey Supervision of normal intrauterine in multigravida Need for rhogam due to Rh negative mother (Acute) History of miscarriage x2 (2018 and 12/2019) Medical History Heartburn History of miscarriage x2 (2018 and 12/2019) Seasonal allergies Surgical History History of colposcopy S/P dilation and curettage US guided D&E for MAB [place] teeth removed Family History Grandmother (Maternal) Heart disease Breast cancer Grandfather (Maternal) Heart disease Grandfather (Paternal) Heart disease Mother Hypertension Father Dyslipidemia Hypertension Other No family history of adverse response to anesthesia Denies family history of Deep vein thrombosis Clotting disorder Bleeding disorder Social History (Updated 12/07/22 @ 13:42 by Juanita Desouza) Smoking Status: Never smoker Second Hand Exposure: No; Do You Dip or Chew Tobacco: No; Tobacco Cessation Education Requested by Patient: No Hx Alcohol Use: No Hx Substance Use: No Preferred Language: [place] Communication Ability: Effective Visual Impairment: No Limitations Nut Cracker Required: No Beliefs That Will Affect Care: None marital status: marital status details: Dusty (34) [phone] Current Living Situation: Family Current Living Situation Comment: Lives with and 2 children, no pets. current occupational status: employed current occupation: [employer] @ [employer]. Other Information That Helps Us Care for You: No Feels Safe at Home: Yes Safety Concerns: Feels Safe At This Time Assistive Devices: Contacts and Glasses Review of Systems Constitutional: no fever and no chills Eyes: no diplopia, not seeing flashes and no worsening vision Respiratory: no cough, no chest congestion and no dyspnea Cardiovascular: no chest pain and no palpitations Gastrointestinal: no abdominal pain, no nausea, no vomiting, no constipation (last BM last night) and no diarrhea/loose stools Genitourinary: no dysuria, no urinary frequency and no urinary urgency Integumentary: no rash and no pruritus Neurologic: no tingling, no numbness and no headache(s) Allergy / Immunological: + seasonal rhinorrhea Physical Exam Constitutional: WD/WN, vitals as above Respiratory: normal respiratory effort, lungs clear to auscultation Cardiovascular: RRR, no murmur, no edema Extremities: normal capillary refill and + pedal edema (+1 pitting edema in feet); no calf tenderness Gastrointestinal (Abdomen): Inspection/Auscultation: abdomen normal to inspection, normal bowel sounds and + significant pannus (gravid uterus) Skin: no rashes, warm and dry Psychiatric: A+Ox3, euthymic affect Genitourinary: Manual OB Exam: + cervical dilation 4 cm, + cervical effacement 80% and + station -2 OB Exam Monitor Tracing: + external FHT monitor used, + external uterine monitor used, + category I and + normal FHT variability Results & Data Results & Data Vital Signs (Past 12 Hours) Vital Signs Temp Pulse BP 07/11/23 07:00 36.8 C 07/11/23 06:55 96 H 138/92 Code Status & VTE Plan VTE Prophylaxis Plan VTE Prophylaxis will be ordered: Yes Supervising Physician Co-Signing Physician Notes Resident Physician Supervision Note: I interviewed and examined the patient. Discussed with Dr. Varela and agree with findings and plan as documented in the note. Any exceptions or clarifications are listed here: 38yo @ 39 0/7, scheduled for breech today, on arrival to L&D limited bedside US showed cephalic presentation. She was given the option to either stay for induction of labor or return home - she elected to stay for IOL. Discussion about suspected LGA - she did previously deliver 8+lb baby (G1) - G2 was smaller. Ancef for GBS+ d/t PCN hives allergy. Tovar bulb placed, 35cc sterile water. Start pitocin. OK for epidural when she desires. Documented By: Monique Navarro DO
[2023-07-11] MEDS ORDERED: OXYTOCIN 30 UNITS/NSS 30 UNITS/500 ML BAG IV PRN ×2 (07:59→20:35)
[2023-07-11] MEDS ORDERED: LIDOCAINE 1% LOCAL 20 ML VIAL INFIL PRN (07:59)
[2023-07-11] MEDS: LACTATED RINGER'S 1,000 ML IV PRN (08:00)
[2023-07-11] MEDS: ceFAZolin 2000MG 2,000 MG/15 ML SYR IV STA (08:34)
[2023-07-11] MEDS: OXYTOCIN 30 UNITS/NSS 30 UNITS/500 ML BAG IV PRN (08:40)
[2023-07-11 09:12] LABS: Albumin Globulin Ratio 1.1 (0.9-2); Albumin Level 3.2 gm/dl (3.4-5.0); BUN Creatinine Ratio 22.2 (10-20); Bilirubin,Total 0.3 mg/dl (0.2-1.0); Calcium 9.2 mg/dl (8.6-10.3); Creatinine Clr Calc Pharmacy 158.4 ml/min; Est GFR (African American) 133.7 ml/min; Est GFR (Non-African American) 115.4 ml/min; Globulin 2.9 gm/dl (2.5-4.0); Potassium 3.8 mmol/L (3.5-5.1); Total Protein 6.1 gm/dl (6.0-8.3)
[2023-07-11] MEDS: ceFAZolin 3,000 MG/72.5 ML BAG IV SCH (10:24)
[2023-07-11] MEDS: fentANYL 2 MCG/ML BUPIVacaine 0.125%-NSS 100ML BAG ONE (10:32)
[2023-07-11] MEDS: LIDOCAINE 2%/EPINEPHRINE 1:200,000 20 ML PF ONE (10:37)
[2023-07-11] MEDS ORDERED: BUPIVACAINE 0.25% PF 30 ML VIAL EPI PRN (10:54)
[2023-07-11] MEDS ORDERED: NALBUPHINE HCL 5 MG in SYRINGE 0 ML IV PRN (10:54)
[2023-07-11] MEDS ORDERED: LIDOCAINE 2% MPF LOCAL 5 ML VIAL EPI PRN (10:54)
[2023-07-11] MEDS ORDERED: ROPIVACAINE 0.5% PF 5 MG/ML 20 ML VIAL EPI PRN (10:54)
[2023-07-11] MEDS ORDERED: SODIUM CHLORIDE 0.9% PF INJ 10 ML VIAL EPI PRN (10:54)
[2023-07-11] MEDS ORDERED: diphenhydrAMINE 50 MG/ML VIAL IV PRN (10:54)
[2023-07-11] MEDS ORDERED: NALOXONE HCL 1 MG in SODIUM CHLORIDE 0.9% 1,000 ML IV PRN (10:54)
[2023-07-11] MEDS ORDERED: ePHEDrine sulfate 50 MG/ML AMP IV PRN (10:54)
[2023-07-11] MEDS ORDERED: NALOXONE HCL 0.4 MG/1 ML VIAL/CARP IV PRN (10:54)
--- NOTE | 2023-07-11 15:24 | Labor Progress Brief Note ---
Date of Service July 11, 2023 Subjective Comfortable with epidural. FHT Cat 1 [place] Q 2 SVE 5/70/-3 AROM blood-tinged fluid. Continue IOL. Assessment & Plan Admission and Anticipated Discharge Date Admission Date: July 11, 2023 Results & Data Vital Signs (Past 12 Hours) Vital Signs Temp Pulse Resp BP Pulse Ox 07/11/23 15:21 97 07/11/23 15:21 86 07/11/23 15:16 97 07/11/23 15:16 76 07/11/23 15:15 83 07/11/23 15:15 150/79 H 07/11/23 15:11 97 07/11/23 15:11 111 H 07/11/23 15:06 96 07/11/23 15:06 75 07/11/23 15:01 97 07/11/23 15:01 73 07/11/23 15:00 18 07/11/23 15:00 18 07/11/23 15:00 69 07/11/23 15:00 137/79 07/11/23 14:56 97 07/11/23 14:56 105 H 07/11/23 14:51 97 07/11/23 14:51 76 07/11/23 14:46 97 07/11/23 14:46 92 H 07/11/23 14:46 148/80 H 07/11/23 14:41 98 07/11/23 14:41 83 07/11/23 14:36 98 07/11/23 14:36 86 07/11/23 14:31 99 07/11/23 14:31 84 07/11/23 14:31 158/80 H 07/11/23 14:30 18 07/11/23 14:30 18 07/11/23 14:26 99 07/11/23 14:26 73 07/11/23 14:21 96 07/11/23 14:21 75 07/11/23 14:16 97 07/11/23 14:16 72 07/11/23 14:15 108 H 07/11/23 14:15 135/79 07/11/23 14:11 97 07/11/23 14:11 72 07/11/23 14:06 97 07/11/23 14:06 113 H 07/11/23 14:02 88 07/11/23 14:02 122/76 05/20/24 14:01 96 05 14:01 81 05 14:00 18 05 14:00 18 05 13:56 97 05 13:56 68 05 13:51 98 05 13:51 76 05 13:46 99 05 13:46 74 05 13:41 97 05 13:41 80 05 13:36 98 05 13:36 80 05 13:31 97 05 13:31 69 05 13:30 18 05 13:30 18 05 13:30 75 05 13:30 130/78 05 13:26 98 05 13:26 73 05 13:21 98 05 13:21 67 05 13:16 97 07/11/23 13:16 71 05 13:15 72 05 13:15 134/78 05 13:11 97 07/11/23 13:11 85 05 13:06 97 07/11/23 13:06 68 07/11/23 13:01 97 07/11/23 13:01 70 07/11/23 13:00 18 05 13:00 18 05 13:00 71 05 13:00 125/75 05 12:56 97 05 12:56 70 05 12:51 97 05 12:51 69 05 12:46 97 05 12:46 73 05 12:45 76 05 12:45 128/75 05 12:41 97 05 12:41 71 05 12:36 97 05 12:36 72 05 12:31 96 05 12:31 82 05 12:30 18 05 12:30 36.8 C 18 0524 12:30 80 05 12:30 125/85 07/11/23 12:26 97 05 12:26 79 05 12:21 97 05 12:21 88 05 12:16 96 07/11/23 12:16 86 07/11/23 12:14 94 07/11/23 12:14 75 05 12:11 98 05 12:11 84 05 12:06 97 07/11/23 12:06 63 07/11/23 12:01 97 07/11/23 12:01 72 05 12:01 115/62 07/11/23 11:56 96 07/11/23 11:56 74 05 11:51 98 07/11/23 11:51 77 07/11/23 11:47 68 07/11/23 11:47 119/66 07/11/23 11:46 97 07/11/23 11:46 68 07/11/23 11:41 98 07/11/23 11:41 73 07/11/23 11:36 97 07/11/23 11:36 72 07/11/23 11:32 69 05 11:32 122/58 L 07/11/23 11:31 98 07/11/23 11:31 68 07/11/23 11:30 18 07/11/23 11:30 18 07/11/23 11:26 98 07/11/23 11:26 71 05 11:21 97 07/11/23 11:21 77 05 11:17 63 05 11:17 121/68 07/11/23 11:16 97 07/11/23 11:16 64 07/11/23 11:11 98 07/11/23 11:11 69 07/11/23 11:06 97 07/11/23 11:06 71 07/11/23 11:01 97 07/11/23 11:01 76 07/11/23 11:00 18 05 11:00 18 07/11/23 11:00 69 05 11:00 127/59 L 05/20/24 10:56 97 05/20/24 10:56 72 05/20/24 10:51 97 05/20/24 10:51 73 05/20/24 10:51 115/58 L 05/20/24 10:47 77 05/20/24 10:47 109/61 05/20/24 10:46 18 05/20/24 10:46 18 05/20/24 10:46 97 05/20/24 10:46 77 05/20/24 10:44 18 05/20/24 10:44 18 05/20/24 10:42 18 05/20/24 10:42 18 05/20/24 10:42 81 05/20/24 10:42 120/60 05/20/24 10:41 98 05/20/24 10:41 84 05/20/24 10:40 18 05/20/24 10:40 18 05/20/24 10:40 82 05/20/24 10:40 120/56 L 05/2024 10:38 18 05/20/24 10:38 18 05/20/24 10:38 82 05/20/24 10:38 130/60 05/20/24 10:36 18 05/20/24 10:36 18 05/20/24 10:36 98 05/20/24 10:36 83 05/20/24 10:31 97 05/20/24 10:31 82 05/20/24 10:26 98 05/20/24 10:26 89 05/20/24 10:21 98 05/20/24 10:21 76 05/20/24 10:16 98 05/20/24 10:16 81 05/20/24 10:16 138/82 05/20/24 10:14 79 05/20/24 10:14 143/88 H 05/20/24 09:47 68 05/20/24 09:47 157/88 H 05/20/24 09:16 75 05/20/24 09:16 144/85 H 05/20/24 08:42 73 05/20/24 08:42 138/93 05/20/24 08:15 72 05/20/24 08:15 146/85 H 05/20/24 07:54 74 05/20/24 07:54 147/89 H 05/20/24 07:52 78 05/20/24 07:52 168/96 H 07/11/23 07:00 36.8 C 07/11/23 06:55 96 H 138/92 Coding Level of Care Code None
[2023-07-11] MEDS: ceFAZolin 1000MG 1,000 MG/7.5 ML SYR IV PRN (16:44)
[2023-07-11] MEDS: fentaNYL citrate PF 100 MCG/2 ML VIAL EPI PRN (17:52)
[2023-07-11] MEDS: BUPIVACAINE 0.25% PF 30 ML VIAL ONE (18:44)
--- NOTE | 2023-07-11 18:44 | Labor Progress Brief Note ---
Date of Service July 11, 2023 Subjective FHT Cat 1 [place] Q 2 SVE 7/80/-3 Comfortable. Discussed concerns re: high station, will plan to continue labor at this time, as tracing is reassuring, and making progress. She is hoping for vaginal delivery. Assessment & Plan Admission and Anticipated Discharge Date Admission Date: July 11, 2023 Results & Data Vital Signs (Past 12 Hours) Vital Signs Temp Pulse Resp BP Pulse Ox 07/11/23 18:36 97 07/11/23 18:36 80 07/11/23 18:31 96 07/11/23 18:31 88 07/11/23 18:31 156/81 H 07/11/23 18:30 18 07/11/23 18:30 18 07/11/23 18:26 95 07/11/23 18:26 84 07/11/23 18:25 93 07/11/23 18:25 87 07/11/23 18:21 97 07/11/23 18:21 92 H 07/11/23 18:16 95 07/11/23 18:16 73 07/11/23 18:16 83 07/11/23 18:16 141/77 H 07/11/23 18:11 95 07/11/23 18:11 76 07/11/23 18:06 95 07/11/23 18:06 79 07/11/23 18:01 96 07/11/23 18:01 84 07/11/23 18:01 148/74 H 07/11/23 18:00 18 07/11/23 18:00 18 07/11/23 17:56 96 07/11/23 17:56 80 07/11/23 17:51 97 07/11/23 17:51 79 07/11/23 17:46 95 07/11/23 17:46 80 07/11/23 17:46 148/81 H 07/11/23 17:41 97 07/11/23 17:41 83 07/11/23 17:36 97 07/11/23 17:36 77 07/11/23 17:31 96 07/11/23 17:31 76 07/11/23 17:30 18 07/11/23 17:30 36.8 C 18 07/11/23 17:30 71 07/11/23 17:30 135/79 07/11/23 17:26 98 05 17:26 73 05 17:21 97 05 17:21 72 05 17:16 98 07/11/23 17:16 81 05 17:15 76 05 17:15 117/64 07/11/23 17:11 98 07/11/23 17:11 76 05 17:06 97 07/11/23 17:06 73 05 17:02 65 05 17:02 118/61 07/11/23 17:01 97 07/11/23 17:01 67 07/11/23 17:00 18 07/11/23 17:00 18 07/11/23 16:56 97 05 16:56 74 05 16:51 98 07/11/23 16:51 73 07/11/23 16:46 97 07/11/23 16:46 74 07/11/23 16:45 89 05 16:45 118/65 07/11/23 16:41 97 07/11/23 16:41 80 07/11/23 16:36 97 07/11/23 16:36 69 07/11/23 16:31 97 07/11/23 16:31 73 05 16:31 67 05 16:31 123/66 07/11/23 16:30 18 07/11/23 16:30 18 07/11/23 16:26 97 07/11/23 16:26 77 07/11/23 16:21 97 07/11/23 16:21 76 05 16:16 97 07/11/23 16:16 67 05 16:15 67 05 16:15 121/60 07/11/23 16:11 97 07/11/23 16:11 70 07/11/23 16:06 96 07/11/23 16:06 74 07/11/23 16:01 97 07/11/23 16:01 72 05 16:00 18 07/11/23 16:00 18 07/11/23 15:56 98 07/11/23 15:56 90 05/20/24 15:51 96 05/2024 15:51 84 05/2024 15:46 95 052024 15:46 107 H 0524 15:46 133/75 05 15:41 96 0524 15:41 100 H 0524 15:36 96 0524 15:36 74 052024 15:31 97 05 15:31 107 H 05 15:30 18 05 15:30 36.8 C 18 05 15:30 91 H 05 15:30 140/82 05 15:26 97 05 15:26 88 05 15:21 97 05 15:21 86 05 15:16 97 07/11/23 15:16 76 05 15:15 83 05 15:15 150/79 H 05 15:11 97 05 15:11 111 H 05 15:06 96 05 15:06 75 05 15:01 97 05 15:01 73 05 15:00 18 05 15:00 18 05 15:00 69 05 15:00 137/79 05 14:56 97 05 14:56 105 H 05 14:51 97 05 14:51 76 05 14:46 97 05 14:46 92 H 052024 14:46 148/80 H 05 14:41 98 05 14:41 83 05 14:36 98 05 14:36 86 05 14:31 99 05 14:31 84 0524 14:31 158/80 H 05 14:30 18 05 14:30 18 052024 14:26 99 052024 14:26 73 05/2024 14:21 96 0524 14:21 75 05/20/24 14:16 97 05 14:16 72 05 14:15 108 H 05 14:15 135/79 05 14:11 97 05 14:11 72 05 14:06 97 07/11/23 14:06 113 H 07/11/23 14:02 88 05 14:02 122/76 05 14:01 96 05 14:01 81 05 14:00 18 05 14:00 18 07/11/23 13:56 97 05 13:56 68 05 13:51 98 05 13:51 76 05 13:46 99 05 13:46 74 07/11/23 13:41 97 07/11/23 13:41 80 05 13:36 98 05 13:36 80 05 13:31 97 07/11/23 13:31 69 05 13:30 18 05 13:30 18 05 13:30 75 05 13:30 130/78 05 13:26 98 05 13:26 73 05 13:21 98 05 13:21 67 07/11/23 13:16 97 07/11/23 13:16 71 05 13:15 72 05 13:15 134/78 05 13:11 97 07/11/23 13:11 85 05 13:06 97 07/11/23 13:06 68 05 13:01 97 07/11/23 13:01 70 05 13:00 18 05 13:00 18 05 13:00 71 05 13:00 125/75 05 12:56 97 05 12:56 70 05 12:51 97 05 12:51 69 05 12:46 97 05 12:46 73 05 12:45 76 05 12:45 128/75 05 12:41 97 05 12:41 71 05 12:36 97 05 12:36 72 05 12:31 96 05 12:31 82 05 12:30 18 05 12:30 36.8 C 18 07/11/23 12:30 80 05 12:30 125/85 05 12:26 97 05 12:26 79 05 12:21 97 05 12:21 88 05 12:16 96 05 12:16 86 05 12:14 94 05 12:14 75 05 12:11 98 07/11/23 12:11 84 07/11/23 12:06 97 07/11/23 12:06 63 05 12:01 97 07/11/23 12:01 72 05 12:01 115/62 05 11:56 96 05 11:56 74 05 11:51 98 05 11:51 77 05 11:47 68 05 11:47 119/66 05 11:46 97 07/11/23 11:46 68 05 11:41 98 05 11:41 73 05 11:36 97 05 11:36 72 05 11:32 69 05 11:32 122/58 L 07/11/23 11:31 98 05 11:31 68 05 11:30 18 05 11:30 18 05 11:26 98 05 11:26 71 05 11:21 97 05 11:21 77 05 11:17 63 05 11:17 121/68 05 11:16 97 05 11:16 64 05 11:11 98 05/20/24 11:11 69 05/20/24 11:06 97 05/20/24 11:06 71 05/20/24 11:01 97 05/20/24 11:01 76 05/20/24 11:00 18 05/20/24 11:00 18 05/20/24 11:00 69 05/20/24 11:00 127/59 L 0520/24 10:56 97 05/20/24 10:56 72 05/20/24 10:51 97 05/20/24 10:51 73 05/20/24 10:51 115/58 L 052024 10:47 77 05/20/24 10:47 109/61 05/20/24 10:46 18 05/20/24 10:46 18 05/20/24 10:46 97 05/20/24 10:46 77 05/20/24 10:44 18 05/20/24 10:44 18 05/20/24 10:42 18 05/20/24 10:42 18 05/20/24 10:42 81 05/20/24 10:42 120/60 05/20/24 10:41 98 05/20/24 10:41 84 05/20/24 10:40 18 05/20/24 10:40 18 05/20/24 10:40 82 05/20/24 10:40 120/56 L 05/2024 10:38 18 05/20/24 10:38 18 05/20/24 10:38 82 05/20/24 10:38 130/60 05/20/24 10:36 18 05/20/24 10:36 18 05/20/24 10:36 98 05/20/24 10:36 83 05/20/24 10:31 97 05/20/24 10:31 82 05/20/24 10:26 98 05/20/24 10:26 89 05/20/24 10:21 98 05/20/24 10:21 76 05/20/24 10:16 98 05/20/24 10:16 81 05/20/24 10:16 138/82 05/20/24 10:14 79 05/20/24 10:14 143/88 H 05/20/24 09:47 68 05/20/24 09:47 157/88 H 05/20/24 09:16 75 07/11/23 09:16 144/85 H 07/11/23 08:42 73 07/11/23 08:42 138/93 07/11/23 08:15 72 07/11/23 08:15 146/85 H 07/11/23 07:54 74 07/11/23 07:54 147/89 H 07/11/23 07:52 78 07/11/23 07:52 168/96 H 07/11/23 07:00 36.8 C 07/11/23 06:55 96 H 138/92 Coding Level of Care Code None
[2023-07-11] MEDS: fentaNYL citrate PF 100 MCG/2 ML VIAL ONE (18:46)
[2023-07-11] MEDS: ePHEDrine sulfate 50 MG/ML AMP ONE (18:46)
[2023-07-11] MEDS: BUPIVACAINE 0.25% PF 30 ML VIAL EPI STA (18:46)
[2023-07-11] MEDS: SODIUM CHLORIDE 0.9% PF INJ 10 ML VIAL ONE (18:46)
[2023-07-11] MEDS: fentaNYL citrate PF 100 MCG/2 ML VIAL EPI STA (18:46)
[2023-07-11] MEDS: LIDOCAINE 2%/EPINEPHRINE 1:200,000 20 ML PF EPI STA (18:47)
[2023-07-11] MEDS: SODIUM CHLORIDE 0.9% PF INJ 10 ML VIAL EPI STA (18:47)
[2023-07-11] MEDS: fentANYL 2 MCG/ML BUPIVacaine 0.125%-NSS 100ML BAG EPI PRN (18:50)
--- NOTE | 2023-07-11 19:54 | Delivery Summary ---
Vaginal Delivery Summary Date of Service July 11, [address] [facility] Vaginal Delivery Summary: Pre-delivery diagnoses: 38yo @ 39 0/7, IOL, GBS+, obesity, AMA, suspected LGA, previous breech presentation Post-delivery diagnoses: same Procedure: spontaneous vaginal delivery Surgeon: Monique Navarro DO Complications: none Findings: Viable male . Apgars: 7/9 . Weight 9lb9oz. QBL: 50ml Description of delivery: The patient progressed to complete with epidural anesthesia. She then began to push. She spontaneously vaginally delivered a viable from the cephalic presentation. The head delivered in KATIE position. The anterior shoulder delivered, followed by the posterior shoulder, followed by the body. No nuchal. The baby was placed on mother's abdomen and a spontaneous cry was heard. Delayed cord clamping was employed, and the cord was doubly clamped and cut. True knot (loose) noted in cord. Cord blood was obtained. The placenta was delivered spontaneously intact with a 3-vessel cord. The uterus and vagina were swept of clots and debris. IV pitocin was given. The uterus became firm. The cervix, vagina, and perineum were inspected and no lacerations were noted. Excellent hemostasis was observed. The mother and baby are recovering in stable and good condition in the room. Sponge and instrument counts were correct x 2. Monique Navarro DO [facility] Vaginal Delivery Charge Vaginal Delivery Codes: 91645 global code for the antepartum, delivery, and post- Delivery Type Details: [facility]
[2023-07-11] MEDS ORDERED: HYDROCORTISONE ACETATE 25 MG SUPP PR PRN (20:35)
[2023-07-11] MEDS ORDERED: oxyCODONE/ACETAMINOPHEN 5mg/325mg TAB PO PRN (20:35)
[2023-07-11] MEDS ORDERED: bisacodyL 10 MG SUPP PR PRN (20:35)
[2023-07-11] MEDS ORDERED: BENZOCAINE 20% SPRY 85 APPLN/85 GM CAN EXT PRN (20:35)
--- NOTE | 2023-07-11 20:52 | Anesthesia Procedure Note ---
Date of Service July 11, 2023 Anesthesia Post Epidural Note Vital Signs Vital Signs: Temp Pulse Resp BP Pulse Ox O2 Del Method 36.7 C 76 20 136/74 97 Room Air 07/11/23 19:05 07/11/23 20:50 07/11/23 19:32 07/11/23 20:50 07/11/23 19:41 07/11/23 19:15 Pain Intensity Lower Abdomen: Pain Intensity: 0 Notes Mental Status: alert / awake / arousable Nausea / Vomiting: adequately controlled Pain: adequately controlled Airway Patency, RR, SpO2: stable & adequate BP & HR: stable & adequate Hydration State: stable & adequate Neuraxial Anesthesia: was administered and sensory block is resolving Anesthetic Complications: no major complications apparent and Pt Satisfied with anesthetic care Epidural: Removed without complications and With tip intact
[2023-07-11] MEDS: DIPHTHER/TETAN/PERTUS Vaccine (Tdap, Adol/Adult) 0.5mL IM ONE (21:51)
[2023-07-11] MEDS: LORATADINE 10 MG TAB PO SCH (21:52)
[2023-07-11] MEDS: IBUPROFEN 600 MG TAB PO PRN (21:52)
[2023-07-11] MEDS: FAMOTIDINE 10 MG TABLET PO SCH (21:52)
[2023-07-11] MEDS: DOCUSATE SODIUM 100 MG CAP PO SCH (21:52)
[2023-07-12] MEDS: ACETAMINOPHEN 325 MG TAB PO PRN (04:37)
--- NOTE | 2023-07-12 06:11 | Obstetrical Progress Note ---
Date of Service <Chuy Varela MD - Last Filed: 07/12/23 07:35> July 12, 2023 Assessment & Plan <Chuy Varela MD - Last Filed: 07/12/23 07:35> (1) Encounter for induction of labor: Plan 38 yo , status post on 07/10 - Pt doing well clinically. Feels well today. Eating well, voiding well, ambulating well. Pain well controlled with PRN pain meds. - Routine care -- OOB, ambulation, diet progression as tolerated Vital Signs reviewed and WNL. (Tmax at 36.8) Hemoglobin Reviewed. 11.8 (date) 10.3 (today). Blood Type: O-, GBS+, Rubella Immune. Encourage ambulation, monitor and control pain with Motrin PRN, resume regular diet, monitor lochia. Breast feeding encouraged. After discharge will have 6 week follow-up with Dr. Navarro. Pt counselled on discharge instructions, in the event they choose to go home today. <Monique Navarro DO - Last Filed: 07/12/23 08:07> (1) Encounter for induction of labor: Subjective <Chuy Varela MD - Last Filed: 07/12/23 07:35> Ambulation: ambulating normally Voiding: no voiding problems Passing Gas:: Yes Diet Tolerance:: regular diet Lochia:: Moderate Feeding Type:: breast feeding Current Pain Level(1-10): 5 (cramping in abdominal area w/ nursing) Constitutional: no fever or no chills Eyes: no diplopia, no seeing flashes or no worsening vision Respiratory: no cough, no chest congestion or no dyspnea Cardiovascular: no chest pain or no palpitations Gastrointestinal: + abdominal pain; no nausea, no vomiting, no constipation (last BM last night) or no diarrhea/loose stools Genitourinary (female): + dysuria; no urinary frequency or no urinary urgency Integumentary: no rash or no pruritus Neurologic: no tingling, no numbness or no headache(s) Allergy / Immunological: + seasonal rhinorrhea Physical Exam <Chuy Varela MD - Last Filed: 07/12/23 07:35> Constitutional WD/WN, vitals as above Respiratory normal respiratory effort, lungs clear to auscultation Cardiovascular RRR, no murmur, no edema Extremities: normal capillary refill and + pedal edema (+1 pitting edema in feet); no calf tenderness Gastrointestinal (Abdomen) Inspection/Auscultation: abdomen normal to inspection, normal bowel sounds and + significant pannus (gravid uterus) Skin no rashes, warm and dry Psychiatric A+Ox3, euthymic affect Genitourinary Manual OB Exam: + cervical dilation 4 cm, + cervical effacement 80% and + station -2 OB Exam Monitor Tracing: + external FHT monitor used, + external uterine monitor used, + category I and + normal FHT variability Results & Data <Chuy Varela MD - Last Filed: 07/12/23 07:35> Vital Signs (Past 12 Hours) Vital Signs Temp Pulse Pulse Resp BP BP Pulse Ox 07/12/23 04:05 36.7 C 78 14 131/87 07/11/23 23:05 36.8 C 85 16 139/92 07/11/23 21:50 18 07/11/23 21:50 108 H 07/11/23 21:50 125/74 07/11/23 21:35 86 07/11/23 21:35 131/80 07/11/23 21:20 20 07/11/23 21:20 77 07/11/23 21:20 127/80 07/11/23 21:05 73 07/11/23 21:05 131/78 07/11/23 20:50 18 07/11/23 20:50 76 07/11/23 20:50 136/74 07/11/23 20:35 20 07/11/23 20:35 81 07/11/23 20:35 141/73 H 07/11/23 20:20 18 07/11/23 20:20 66 07/11/23 20:20 136/69 07/11/23 20:05 18 07/11/23 20:05 82 07/11/23 20:05 135/69 07/11/23 19:50 18 07/11/23 19:50 81 07/11/23 19:50 127/72 07/11/23 19:47 126 H 07/11/23 19:47 176/109 H 07/11/23 19:41 97 05/20/24 19:41 87 07/11/23 19:36 98 07/11/23 19:36 90 07/11/23 19:32 20 07/11/23 19:32 20 07/11/23 19:32 86 L 07/11/23 19:32 138 H 07/11/23 19:31 97 07/11/23 19:31 163 H 07/11/23 19:26 98 07/11/23 19:26 120 H 07/11/23 19:21 98 05 19:21 98 H 07/11/23 19:16 99 07/11/23 19:16 91 H 07/11/23 19:15 07/11/23 19:15 87 07/11/23 19:15 133/70 07/11/23 19:11 99 07/11/23 19:11 99 H 07/11/23 19:06 99 07/11/23 19:06 83 07/11/23 19:05 18 07/11/23 19:05 36.7 C 18 07/11/23 19:01 99 07/11/23 19:01 83 07/11/23 19:00 18 07/11/23 19:00 18 07/11/23 19:00 78 07/11/23 19:00 141/78 H 07/11/23 18:56 100 07/11/23 18:56 85 07/11/23 18:51 99 07/11/23 18:51 85 07/11/23 18:46 98 07/11/23 18:46 77 07/11/23 18:45 82 05 18:45 135/70 05 18:41 97 07/11/23 18:41 74 07/11/23 18:36 97 07/11/23 18:36 80 05 18:31 96 05 18:31 88 05 18:31 156/81 H 07/11/23 18:30 18 05 18:30 18 07/11/23 18:26 95 07/11/23 18:26 84 05 18:25 93 05 18:25 87 05 18:21 97 05/20/24 18:21 92 H 0524 18:16 95 07/11/23 18:16 73 07/11/23 18:16 83 07/11/23 18:16 141/77 H 07/11/23 18:11 95 07/11/23 18:11 76 O2 Del Method 07/12/23 04:05 Room Air 07/11/23 23:05 Room Air 07/11/23 21:50 07/11/23 21:50 07/11/23 21:50 07/11/23 21:35 07/11/23 21:35 07/11/23 21:20 07/11/23 21:20 07/11/23 21:20 07/11/23 21:05 07/11/23 21:05 07/11/23 20:50 07/11/23 20:50 07/11/23 20:50 07/11/23 20:35 07/11/23 20:35 07/11/23 20:35 07/11/23 20:20 07/11/23 20:20 07/11/23 20:20 07/11/23 20:05 07/11/23 20:05 07/11/23 20:05 07/11/23 19:50 07/11/23 19:50 07/11/23 19:50 07/11/23 19:47 07/11/23 19:47 07/11/23 19:41 07/11/23 19:41 07/11/23 19:36 07/11/23 19:36 07/11/23 19:32 07/11/23 19:32 07/11/23 19:32 07/11/23 19:32 07/11/23 19:31 07/11/23 19:31 07/11/23 19:26 07/11/23 19:26 07/11/23 19:21 07/11/23 19:21 07/11/23 19:16 07/11/23 19:16 07/11/23 19:15 Room Air 07/11/23 19:15 07/11/23 19:15 07/11/23 19:11 07/11/23 19:11 07/11/23 19:06 07/11/23 19:06 07/11/23 19:05 07/11/23 19:05 07/11/23 19:01 07/11/23 19:01 07/11/23 19:00 07/11/23 19:00 07/11/23 19:00 07/11/23 19:00 07/11/23 18:56 07/11/23 18:56 07/11/23 18:51 07/11/23 18:51 07/11/23 18:46 07/11/23 18:46 07/11/23 18:45 07/11/23 18:45 07/11/23 18:41 07/11/23 18:41 07/11/23 18:36 07/11/23 18:36 07/11/23 18:31 07/11/23 18:31 07/11/23 18:31 07/11/23 18:30 07/11/23 18:30 07/11/23 18:26 07/11/23 18:26 07/11/23 18:25 07/11/23 18:25 07/11/23 18:21 07/11/23 18:21 07/11/23 18:16 07/11/23 18:16 07/11/23 18:16 07/11/23 18:16 07/11/23 18:11 07/11/23 18:11 Supervising Physician <Monique Navarro DO - Last Filed: 07/12/23 08:07> Co-Signing Physician Notes Resident Physician Supervision Note: I interviewed and examined the patient. Discussed with Dr. Varela and agree with findings and plan as documented in the note. Any exceptions or clarifications are listed here: PPD#1 doing well, routine care. Desires DC home today. Reviewed instructions. Documented By: Monique Navarro DO
[2023-07-12 06:41] LABS: Hematocrit (blood only) 29.6 % (37.0-47.0); Hemoglobin 10.3 g/dl (12.0-16.0)
[2023-07-12] MEDS: PRENATAL VITAMIN 1 TAB PO SCH (08:58)
[2023-07-12] MEDS: bisacodyL 5 MG TABEC PO SCH (20:02)
== END 2023-07-12 21:00 | disposition home or self-care (01) | DRG 807 ==
LOC: 4S1 05:34 → EDSTATUS 07:30 → 4E2 22:35